=== PATIENT | female | born 1950 | race Hispanic/Latino ===

== ENCOUNTER 2017-10-29 21:22 | Inpatient (IN) | payer MEDICARE, MEDICAID ==
[2017-10-29 22:18] LABS: Mean Corpuscular HGB Conc 30 % (30-34); Mean Corpuscular Hemoglobin 28 pg (28-32); Mean Corpuscular Volume 92 fl (79-97); Red Blood Count 5.86 M/mm3 (3.65-5.03); Red Cell Distribution Width 16.4 % (13.2-15.2)
[2017-10-29 22:32] LABS: Hemoglobin 16.4 gm/dl (10.1-14.3); Platelet Count 656 K/mm3 (140-440)
[2017-10-29 22:35] LABS: Alanine Aminotransferase TNR units/L (7-56); Albumin TNR g/dL (3.9-5); BUN/Creatinine Ratio TNR; Blood Urea Nitrogen TNR mg/dL (7-17); Calcium TNR mg/dL (8.4-10.2)
[2017-10-29 22:36] LABS: Hemolysis Index TNR
[2017-10-29] MEDS ORDERED: NACL 0.9% 1000 ML 1,000 ML IV ONE (22:36)
[2017-10-29] MEDS ORDERED: BENADRYL IV ONE (23:34)
[2017-10-29 23:37] LABS: Band Neutrophils # (Manual) 1.4 K/mm3; Basophils % (Manual) 0 % (0.0-1.8); Eosinophils % (Manual) 0 % (0.0-4.3); Monocytes % (Manual) 3.5 % (0.0-7.3); Total Cells Counted 200
[2017-10-29 23:39] LABS: Platelet Estimate Appears Increased
[2017-10-29 23:40] LABS: Ovalocytes Few; Target Cells Few
[2017-10-30 00:16] LABS: Bacteria,Urine 4+ /HPF (Negative); Bilirubin,Urine NEG (Negative); Blood,Urine NEG (Negative); Color,Urine Amber (Yellow); Hyaline Casts,Urine 8 /LPF; Mucus,Urine 3+ /HPF; Nitrite,Urine NEG (Negative)
[2017-10-30 00:18] LABS: WBC,Urine > 182.0 /HPF (0.0-6.0)
[2017-10-30] MEDS ORDERED: NACL 0.9% 1000 ML 1,000 ML IV ONE (00:25)
[2017-10-30] MEDS ORDERED: ROCEPHIN IV ONE (00:30)
[2017-10-30] MEDS ORDERED: NACL 0.9% IV ONE (00:30)
--- NOTE | 2017-10-30 01:30 | Emergency Department Report ---
ED Recheck HPI - General Chief Complaint: Recheck/Abnormal Lab/Rx Stated Complaint: ABNORMAL LABS Time Seen by Provider: 10/29/17 21:57 Source: EMS Mode of arrival: Stretcher Limitations: Altered Mental Status - History of Present Illness Initial Comments: Patient has mostly a psychiatric history with GERD who now has WBC at NH of 31K and a reported sodium of 170. She has had no change in behavior per triage interview. Patient has not appeared to be in acute distress. She does not know why she is here but is pleasant. Complaint: abnormal lab -: Gradual Initial Visit For: other (abnormal lab recheck.) Returns Today for: other (Recheck labs.) Symptoms Since Prior Visit: no new symptoms Context: called for abnorm lab res Associated Symptoms: none - Related Data Allergies Allergy/AdvReac Type Severity Reaction Status Date / Time No Known Allergies Allergy Unverified 10/29/17 21:26 ED Review of Systems ROS: Stated complaint: ABNORMAL LABS Other details as noted in HPI Constitutional: denies: chills, fever Eyes: denies: eye pain, eye discharge, vision change ENT: denies: ear pain, throat pain Respiratory: denies: cough, shortness of breath, wheezing Cardiovascular: denies: chest pain, palpitations Endocrine: no symptoms reported Gastrointestinal: denies: abdominal pain, nausea, diarrhea Genitourinary: denies: urgency, dysuria, discharge Musculoskeletal: denies: back pain, joint swelling, arthralgia Skin: denies: rash, lesions Neurological: denies: headache, weakness, paresthesias Psychiatric: denies: anxiety, depression Hematological/Lymphatic: denies: easy bleeding, easy bruising ED Past Medical Hx - Past Medical History Previous Medical History?: Yes Hx Psychiatric Treatment: Yes (Bi Polar, Depression) Additional medical history: Glycoma - Social History Smoking Status: Never Smoker Substance Use Type: Prescribed ED Physical Exam - General Limitations: Altered Mental Status, Other (Patient cognitively appears confused but is no distress.) General appearance: alert, in no apparent distress - Head Head exam: Present: atraumatic, normocephalic - Eye Eye exam: Present: normal appearance - ENT ENT exam: Present: mucous membranes dry - Neck Neck exam: Present: normal inspection - Respiratory Respiratory exam: Present: normal lung sounds bilaterally. Absent: respiratory distress - Cardiovascular Cardiovascular Exam: Present: regular rate, normal rhythm. Absent: systolic murmur, diastolic murmur, rubs, gallop - GI/Abdominal GI/Abdominal exam: Present: soft, normal bowel sounds - Extremities Exam Extremities exam: Present: normal inspection - Back Exam Back exam: Present: normal inspection - Neurological Exam Neurological exam: Present: alert, altered (but per triage no acute changes from baseline.), CN II-XII intact, motor sensory deficit, reflexes normal - Psychiatric Psychiatric exam: Present: normal affect, normal mood - Skin Skin exam: Present: warm, dry, intact, normal color. Absent: rash ED Course Vital Signs 10/29/17 10/29/17 10/30/17 21:26 23:35 00:37 Temperature 98.0 F 97.7 F Pulse Rate 99 H 108 H 108 H Respiratory 20 20 18 Rate Blood Pressure 94/66 Blood Pressure 146/67 146/65 [Left] O2 Sat by Pulse 97 Oximetry ED Recheck MDM - Core Measures AMI Core Measures Followed: No Measure Exclusions: not indicated - Differential Diagnosis Recheck of Abnormal Lab - Medical Decision Making Patient with abnormal labs here and lab has been unable to quantify CMP values. Her WBC was 47K and her lactic acid was elevated. She was started on the sepsis protocol. She is making urine as they got 300 ml out on initial cath of dark yellow urine. Critical care attestation.: If time is entered above; I have spent that time in minutes in the direct care of this critically ill patient, excluding procedure time. ED Disposition Clinical Impression: Lymphocytosis Sepsis Qualifiers: Sepsis type: sepsis due to unspecified organism Qualified Code(s): A41.9 - Sepsis, unspecified organism UTI (urinary tract infection) Qualifiers: Urinary tract infection type: acute cystitis Hematuria presence: without hematuria Qualified Code(s): N30.00 - Acute cystitis without hematuria Disposition: OP ADMIT IP TO THIS HOSP Is pt being admited?: Yes Does the pt Need Aspirin: No Condition: Stable Time of Disposition: 01:36
[2017-10-30 02:06] LABS: Calcium 9.5 mg/dL (8.4-10.2)
[2017-10-30] MEDS ORDERED: ZOFRAN IV PRN (02:09)
[2017-10-30] MEDS ORDERED: MILK OF MAGNESIA PO PRN (02:09)
[2017-10-30] MEDS ORDERED: TYLENOL PO PRN (02:09)
[2017-10-30] MEDS ORDERED: DULCOLAX PR PRN (02:09)
--- NOTE | 2017-10-30 02:34 | History and Physical Report ---
History of Present Illness Date of examination: 10/30/17 History of present illness: 67-year-old woman with a history of dementia, depression was sent to the emergency room for evaluation of abnormal labs. Her white count was 31 and sodium of 170. Patient is unable to give a history, unable to obtain review of systems PAST MEDICAL HISTORY:dementia, depression PAST SURGICAL HISTORY: Unknown FAMILY HISTORY: Unknown SOCIAL HISTORY: Unknown, long-term resident Medications and Allergies Allergies Allergy/AdvReac Type Severity Reaction Status Date / Time No Known Allergies Allergy Unverified 10/29/17 21:26 Home Medications Medication Instructions Recorded Confirmed Last Taken Type Escitalopram [Lexapro] 10 mg PO DAILY 10/30/17 10/30/17 Unknown History Ferrous Sulfate [Ferosul Oral Liq 300 mg PO QAM 10/30/17 10/30/17 Unknown History 300 Mg/6.82 Ml] Folic Acid [Folvite] 1 mg PO QDAY 10/30/17 10/30/17 Unknown History Potassium Chloride [Klor-Con 10 meq PO QDAY 10/30/17 10/30/17 Unknown History Sprinkle] Sennosides [Senna] 8.6 mg PO QHS 10/30/17 10/30/17 Unknown History Valproic Acid (As Sodium Salt) 250 mg PO TID 10/30/17 10/30/17 Unknown History [Depakene] Zantac 150 MG TAB 75 mg HS 10/30/17 10/30/17 Unknown History Acetaminophen [Acetaminophen TAB] 325 mg PO Q4H PRN #30 tablet 11/02/17 Unknown Rx Bisacodyl [Dulcolax suppos] 10 mg NM QDAY PRN #4 supp.rect 11/02/17 Unknown Rx Donepezil [Aricept] 10 mg PO QHS #30 11/02/17 10/30/17 Unknown Rx Levofloxacin [Levaquin TAB] 750 mg PO Q24HR #6 day 11/02/17 Unknown Rx Magnesium Hydroxide [Milk of 30 ml PO Q4H PRN #30 oral.liqd 11/02/17 Unknown Rx Magnesia] Active Meds: Active Medications Acetaminophen (Tylenol) 650 mg PO Q4H PRN PRN Reason: Pain MILD(1-3)/Fever >100.5/JAIME Bisacodyl (Dulcolax) 10 mg NM QDAY PRN PRN Reason: Constipation unrelieved by MOM Enoxaparin Sodium (Lovenox) 30 mg SUB-Q QDAY LENY Ceftriaxone Sodium (Rocephin/Ns 2 Gm/100 Ml) 2 gm in 100 mls @ 200 mls/hr IV ONCE.ED ONE PRN Reason: Protocol Stop: 10/31/17 00:17 Piperacillin Sod/Tazobactam Sod (Zosyn/Ns 3.375gm/50ml) 3.375 gm in 50 mls @ 100 mls/hr IV Q8H LENY PRN Reason: Protocol Dextrose (D5w) 1,000 mls @ 75 mls/hr IV DIRECT LENY Vancomycin HCl (Vancomycin/Ns 1 Gm/250 Ml) 1 gm in 250 mls @ 167.007 mls/hr IV ONCE.ED ONE PRN Reason: Protocol Stop: 10/30/17 05:29 Magnesium Hydroxide (Milk Of Magnesia) 30 ml PO Q4H PRN PRN Reason: Constipation Ondansetron HCl (Zofran) 4 mg IV Q8H PRN PRN Reason: N/V unrelieved by Reglan Exam - Physical Exam Narrative exam: Gen. appearance: Patient lying in bed in no acute distress HEENT: Normocephalic/atraumatic, pupils equal round reactive to light, extra occular movement intact, no scleral icterus, no JVD or thyromegaly or nodule, neck is supple, mucous membrane moist, no erythema or exudate Heart: S1-S2, regular rate and rhythm Lungs: Clear to auscultation bilateral breathing comfortable Abdomen: Positive bowel sounds, nontender, nondistended, no organomegaly Extremities: No edema, cyanosis, clubbing Neuro:: Oriented 3 , cranial nerves II-12 intact, speech, motor intact Skin: No rash, nodules, warm dry - Constitutional Vitals: Temp Pulse Resp BP Pulse Ox 97.7 F 108 H 18 146/65 97 10/29/17 23:35 10/30/17 00:37 10/30/17 00:37 10/30/17 00:37 10/29/17 21:26 Results - Labs CBC & Chem 7: 11/02/17 07:33 11/02/17 07:33 Labs: Abnormal lab results 10/29/17 10/29/17 10/29/17 Range/Units 21:37 21:37 23:46 WBC 46.7 H* (4.5-11.0) K/mm3 RBC 5.86 H (3.65-5.03) M/mm3 Hgb 16.4 H (10.1-14.3) gm/dl Hct 54.0 H (30.3-42.9) % RDW 16.4 H (13.2-15.2) % Plt Count 656 H (140-440) K/mm3 Lymphocytes % (Manual) 52.5 H (13.4-35.0) % Seg Neutrophils # Man 19.1 H (1.8-7.7) K/mm3 Lymphocytes # (Manual) 24.5 H (1.2-5.4) K/mm3 Monocytes # (Manual) 1.6 H (0.0-0.8) K/mm3 Sodium (137-145) mmol/L Chloride (98-107) mmol/L BUN (7-17) mg/dL Creatinine (0.7-1.2) mg/dL Glucose (65-100) mg/dL Lactic Acid 2.80 H* (0.7-2.0) mmol/L Urine WBC (Auto) > 182.0 H (0.0-6.0) /HPF 10/30/17 Range/Units 01:53 WBC (4.5-11.0) K/mm3 RBC (3.65-5.03) M/mm3 Hgb (10.1-14.3) gm/dl Hct (30.3-42.9) % RDW (13.2-15.2) % Plt Count (140-440) K/mm3 Lymphocytes % (Manual) (13.4-35.0) % Seg Neutrophils # Man (1.8-7.7) K/mm3 Lymphocytes # (Manual) (1.2-5.4) K/mm3 Monocytes # (Manual) (0.0-0.8) K/mm3 Sodium 177 H* (137-145) mmol/L Chloride 133.3 H (98-107) mmol/L BUN 74 H (7-17) mg/dL Creatinine 2.6 H (0.7-1.2) mg/dL Glucose 146 H (65-100) mg/dL Lactic Acid (0.7-2.0) mmol/L Urine WBC (Auto) (0.0-6.0) /HPF - Imaging and Cardiology EKG: image reviewed Assessment and Plan Assessment sepsis severe hypernatremia Acute renal failure dehydrstion Dementia Depression Plan Admit to medicine Start IV fluids, monitor sodium level Start vancomycin, Zosyn, follow cultures, consult infectious disease I'll clear this white count is secondary to infection versus malignancy She has a thick slight yellowness sputum, check CT chest DVT prophylaxis
[2017-10-30] MEDS ORDERED: ZOSYN/NS 3.375GM/50ML 3.375 GM/50 ML BAG IV SCH (03:00)
[2017-10-30] MEDS ORDERED: NACL 0.9% 1000 ML 1,000 ML IV SCH (03:00)
--- NOTE | 2017-10-30 03:03 | Cat Scan Report ---
FINAL REPORT EXAM: CT CHEST WO CON HISTORY: wbc 46 TECHNIQUE: Routine axial imaging was obtained of the thorax without IV contrast with sagittal and coronal reconstructions. FINDINGS: There is motion artifact compromising the images. There is a spiculated 14 millimeter nodule which is noncalcified in the posterior segment of the right upper lobe abutting the major fissure. Malignancy cannot be excluded. The lungs otherwise do not show infiltrates or effusions. There is dependent atelectasis in both lower lobes. The lungs are not congested. The heart size is normal. Pericardial fluid is not seen. The thoracic aorta is ectatic. There is no evidence of adenopathy. In the upper abdomen the adrenal glands appear normal. The skeletal structures reveal multilevel disc degeneration in the thoracic spine. IMPRESSION: Limited exam because of motion artifact. No evidence of pneumonia or congestion. Spiculated noncalcified nodule in the posterior segment of the right upper lobe abutting the major fissure measuring 14 millimeters in diameter. Malignancy cannot be excluded.
[2017-10-30] MEDS: ZOSYN/NS 2.25 GM/50ML 2.25 GM/50 ML BAG IV SCH ×4 (03:19→18:02)
[2017-10-30 03:45] LABS: Calcium 7.8 mg/dL (8.4-10.2)
[2017-10-30] MEDS ORDERED: VANCOMYCIN/NS 1 GM/250 ML 1 GM/250 ML BAG IV ONE (04:00)
[2017-10-30] MEDS: D5W 1,000 ML IV SCH (05:58)
[2017-10-30 06:04] LABS: Calcium 7.7 mg/dL (8.4-10.2)
--- NOTE | 2017-10-30 08:49 | Ultrasound Report ---
Renal ultrasound. History: Acute renal failure. Findings: The right kidney is normal in size and configuration with the longitudinal axis measuring 10.3 cm. There is no evidence of mass or hydronephrosis. An attempt was made to complete the examination, but the patient insisted that the examination be terminated before the left kidney and bladder could be examined.
[2017-10-30] MEDS ORDERED: LOVENOX SUB-Q SCH (10:00)
[2017-10-30 10:42] LABS: Calcium 8.2 mg/dL (8.4-10.2)
--- NOTE | 2017-10-30 10:54 | Progress Note ---
Assessment and Plan Assessment and plan: Patient is 67-year-old woman from a shelter with a history of mental disorder who presents with altered mental status and abnormal labs (no prior hospitalization in EMR). She was found to have a sodium of 177, white blood cell count 46.7 CT chest without contrast reported as no pneumonia, spiculated noncalcified nodule in the posterior segment of the right upper lung abutting the major fissure with a 14 mm diameter -Acute metabolic encephalopathy: Treat underlying cause -Severe hypernatremia: Consulted nephrology and d/w Dr. Toney should be on D5W -Severe leukocytosis, severely dehydrated and FTT, ?Cancer: consult heme/onc -ARF, vasomotor nephropathy: IVF -Mild malnutrition: poor intake, ?peg -Lung nodule. ?lung Cancer: consult pulmonology -DVT/GI prophylaxis reviewed History Interval history: Patient was seen and examined. Follow-up on current diagnosis/altered mental status. Overnight uneventful. Imaging, nursing note, chart, labs and old chart reviewed. Patient is confused. Hospitalist Physical - Physical exam Narrative exam: GEN: Thin and frail NAD, AWAKE, ALERT, ORIENTATED 1 HEENT: NCAT, EOMI, PERRL, OP dry and pasty lips NECK: supple, no adenopathy, no thyromegaly, no JVD CVS/HEART: RRR, NORMAL S1S2, NO JVD, pulses present bilaterally CHEST/LUNGS: CTA B, Symmetrical chest expansion, good air entry bilaterally GI/Abdomen: soft, NTND, good bowel sounds, no guarding or rebound /Bladder: no suprapubic tenderness, no CVA or paraspinal tenderness EXT/Skin: mucous membranes dry MSK: FROM x 4 Neuro: CN 2-12 grossly intact, no new focal deficits Psych: calm - Constitutional Vitals: Temp Pulse Resp BP Pulse Ox 98.9 F 80 20 121/98 91 10/30/17 08:18 10/30/17 08:18 10/30/17 08:18 10/30/17 08:18 10/30/17 08:18 Results - Labs CBC & Chem 7: 10/29/17 21:37 10/30/17 10:00 Labs: Laboratory Last Values WBC 46.7 K/mm3 (4.5-11.0) H* 10/29/17 21:37 RBC 5.86 M/mm3 (3.65-5.03) H 10/29/17 21:37 Hgb 16.4 gm/dl (10.1-14.3) H 10/29/17 21:37 Hct 54.0 % (30.3-42.9) H 10/29/17 21:37 MCV 92 fl (79-97) 10/29/17 21:37 MCH 28 pg (28-32) 10/29/17 21:37 MCHC 30 % (30-34) 10/29/17 21:37 RDW 16.4 % (13.2-15.2) H 10/29/17 21:37 Plt Count 656 K/mm3 (140-440) H 10/29/17 21:37 Lymph % (Auto) [employer] Installer 10/29/17 21:37 Carson % (Auto) [employer] Installer 10/29/17 21:37 Eos % (Auto) [employer] Installer 10/29/17 21:37 Baso % (Auto) [employer] Installer 10/29/17 21:37 Lymph # [employer] Installer 10/29/17 21:37 Carson # [employer] Maker [employer] Installer 10/29/17 21:37 Eos # [employer] Maker [employer] Installer 10/29/17 21:37 Baso # [employer] Maker [employer] Installer 10/29/17 21:37 Add Manual Diff Complete 10/29/17 21:37 Total Counted 200 10/29/17 21:37 Seg Neutrophils % [employer] Installer 10/29/17 21:37 Seg Neuts % (Manual) 41.0 % (40.0-70.0) 10/29/17 21:37 Band Neutrophils % 3.0 % 10/29/17 21:37 Lymphocytes % (Manual) 52.5 % (13.4-35.0) H 10/29/17 21:37 Reactive Lymphs % (Man) 0 % 10/29/17 21:37 Monocytes % (Manual) 3.5 % (0.0-7.3) 10/29/17 21:37 Eosinophils % (Manual) 0 % (0.0-4.3) 10/29/17 21:37 Basophils % (Manual) 0 % (0.0-1.8) 10/29/17 21:37 Metamyelocytes % 0 % 10/29/17 21:37 Myelocytes % 0 % 10/29/17 21:37 Promyelocytes % 0 % 10/29/17 21:37 Blast Cells % 0 % 10/29/17 21:37 Nucleated RBC % Not Reportable 10/29/17 21:37 Seg Neutrophils # [employer] Installer 10/29/17 21:37 Seg Neutrophils # Man 19.1 K/mm3 (1.8-7.7) H 10/29/17 21:37 Band Neutrophils # 1.4 K/mm3 10/29/17 21:37 Lymphocytes # (Manual) 24.5 K/mm3 (1.2-5.4) H 10/29/17 21:37 Abs React Lymphs (Man) 0.0 K/mm3 10/29/17 21:37 Monocytes # (Manual) 1.6 K/mm3 (0.0-0.8) H 10/29/17 21:37 Eosinophils # (Manual) 0.0 K/mm3 (0.0-0.4) 10/29/17 21:37 Basophils # (Manual) 0.0 K/mm3 (0.0-0.1) 10/29/17 21:37 Metamyelocytes # 0.0 K/mm3 10/29/17 21:37 Myelocytes # 0.0 K/mm3 10/29/17 21:37 Promyelocytes # 0.0 K/mm3 10/29/17 21:37 Blast Cells # 0.0 K/mm3 10/29/17 21:37 WBC Morphology Not Reportable 10/29/17 21:37 Hypersegmented Neuts Not Reportable 10/29/17 21:37 Hyposegmented Neuts Not Reportable 10/29/17 21:37 Hypogranular Neuts Not Reportable 10/29/17 21:37 Smudge Cells Not Reportable 10/29/17 21:37 Toxic Granulation Not Reportable 10/29/17 21:37 Toxic Vacuolation Not Reportable 10/29/17 21:37 Dohle Bodies Not Reportable 10/29/17 21:37 Pelger-Huet Anomaly Not Reportable 10/29/17 21:37 Boo Rods Not Reportable 10/29/17 21:37 Platelet Estimate Appears increased 10/29/17 21:37 Clumped Platelets Not Reportable 10/29/17 21:37 Plt Clumps, EDTA Not Reportable 10/29/17 21:37 Large Platelets Not Reportable 10/29/17 21:37 Giant Platelets Not Reportable 10/29/17 21:37 Platelet Satelliting Not Reportable 10/29/17 21:37 Plt Morphology Comment Not Reportable 10/29/17 21:37 RBC Morphology Not Reportable 10/29/17 21:37 Dimorphic RBCs Not Reportable 10/29/17 21:37 Polychromasia Not Reportable 10/29/17 21:37 Hypochromasia Not Reportable 10/29/17 21:37 Poikilocytosis Not Reportable 10/29/17 21:37 Anisocytosis Not Reportable 10/29/17 21:37 Microcytosis Not Reportable 10/29/17 21:37 Macrocytosis Not Reportable 10/29/17 21:37 Spherocytes Not Reportable 10/29/17 21:37 Pappenheimer Bodies Not Reportable 10/29/17 21:37 Sickle Cells Not Reportable 10/29/17 21:37 Target Cells Few 10/29/17 21:37 Tear Drop Cells Not Reportable 10/29/17 21:37 Ovalocytes Few 10/29/17 21:37 Helmet Cells Not Reportable 10/29/17 21:37 [place] Bodies Not Reportable 10/29/17 21:37 [place] Rings Not Reportable 10/29/17 21:37 Girish Cells Not Reportable 10/29/17 21:37 Bite Cells Not Reportable 10/29/17 21:37 Crenated Cell Not Reportable 10/29/17 21:37 Elliptocytes Not Reportable 10/29/17 21:37 Acanthocytes (Spur) Not Reportable 10/29/17 21:37 Rouleaux Not Reportable 10/29/17 21:37 Hemoglobin C Crystals Not Reportable 10/29/17 21:37 Schistocytes Not Reportable 10/29/17 21:37 Malaria parasites Not Reportable 10/29/17 21:37 Josue Bodies Not Reportable 10/29/17 21:37 Hem Pathologist Commnt No 10/29/17 21:37 Sodium 175 mmol/L (137-145) H* 10/30/17 10:00 Potassium 4.5 mmol/L (3.6-5.0) D 10/30/17 10:00 Chloride 137.4 mmol/L (98-107) H 10/30/17 10:00 Carbon Dioxide 22 mmol/L (22-30) 10/30/17 10:00 Anion Gap 20 mmol/L 10/30/17 10:00 BUN 57 mg/dL (7-17) H 10/30/17 10:00 Creatinine 1.4 mg/dL (0.7-1.2) H 10/30/17 10:00 Estimated GFR 37 ml/min 10/30/17 10:00 BUN/Creatinine Ratio 41 % 10/30/17 10:00 Glucose 164 mg/dL (65-100) H 10/30/17 10:00 Lactic Acid 2.80 mmol/L (0.7-2.0) H* 10/29/17 21:37 Calcium 8.2 mg/dL (8.4-10.2) L 10/30/17 10:00 Total Bilirubin 0.30 mg/dL (0.1-1.2) 10/30/17 01:53 AST 33 units/L (5-40) 10/30/17 01:53 ALT 30 units/L (7-56) 10/30/17 01:53 Alkaline Phosphatase 116 units/L (35-129) 10/30/17 01:53 Total Protein 7.6 g/dL (6.3-8.2) 10/30/17 01:53 Albumin 4.0 g/dL (3.9-5) 10/30/17 01:53 Albumin/Globulin Ratio 1.1 % 10/30/17 01:53 Urine Color Elle (Yellow) 10/29/17 23:46 Urine Turbidity Cloudy (Clear) 10/29/17 23:46 Urine pH 5.0 (5.0-7.0) 10/29/17 23:46 Ur Specific Perrin 1.021 (1.003-1.030) 10/29/17 23:46 Urine Protein 30 mg/dl mg/dL (Negative) 10/29/17 23:46 Urine Glucose (UA) Neg mg/dL (Negative) 10/29/17 23:46 Urine Ketones Neg mg/dL (Negative) 10/29/17 23:46 Urine Blood Neg (Negative) 10/29/17 23:46 Urine Nitrite Neg (Negative) 10/29/17 23:46 Urine Bilirubin Neg (Negative) 10/29/17 23:46 Urine Urobilinogen 2.0 mg/dL (<2.0) 10/29/17 23:46 Ur Leukocyte Esterase Lg (Negative) 10/29/17 23:46 Urine WBC (Auto) > 182.0 /HPF (0.0-6.0) H 10/29/17 23:46 Urine RBC (Auto) 9.0 /HPF (0.0-6.0) 10/29/17 23:46 Urine Bacteria (Auto) 4+ /HPF (Negative) 10/29/17 23:46 Urine WBC Clumps 3+ /HPF 10/29/17 23:46 Hyaline Casts 8 /LPF 10/29/17 23:46 Urine Mucus 3+ /HPF 10/29/17 23:46
--- NOTE | 2017-10-30 11:57 | Consultation ---
History of Present Illness - Reason for Consult Consult date: 10/30/17 leukocytosis Requesting physician: DONAVON EPPS - History of Present Illness 67 years old female with history of dementia and depression, admitted on 10/29/17 sent from care home for evaluation of abnormal labs. Her white count was found at 31 and sodium at 170. Patient is unable to give a history, unable to obtain review of systems. In the emergency room, initial temperature was 98, heart rate 99, respiration 20 , O2 sat 97, blood pressure 94/66. Initial white count 46. Hg 10.4. Plat 656. Sodium was 175. Urinalysis showed large leukocyte esterase and 182 white blood cells. Renal ultrasound was negative. The chest showed right upper lobe nodule at 14 mm. Microbiology: none Current Antimicrobials: Zosyn Ceftriaxone Previous Antimicrobials: Medications and Allergies Allergies Allergy/AdvReac Type Severity Reaction Status Date / Time No Known Allergies Allergy Unverified 10/29/17 21:26 Home Medications Medication Instructions Recorded Confirmed Last Taken Type Acetaminophen [Acetaminophen ER] 650 mg PO BID 10/30/17 10/30/17 Unknown History Cranberry Fruit [Cranberry] 405 mg PO QDAY 10/30/17 10/30/17 Unknown History Donepezil [Aricept] 10 mg PO QHS 10/30/17 10/30/17 Unknown History Escitalopram [Lexapro] 10 mg PO DAILY 10/30/17 10/30/17 Unknown History Ferrous Sulfate [Ferosul Oral Liq 300 mg PO QAM 10/30/17 10/30/17 Unknown History 300 Mg/6.82 Ml] Folic Acid [Folvite] 1 mg PO QDAY 10/30/17 10/30/17 Unknown History Potassium Chloride [Klor-Con 10 meq PO QDAY 10/30/17 10/30/17 Unknown History Sprinkle] Sennosides [Senna] 8.6 mg PO QHS 10/30/17 10/30/17 Unknown History Valproic Acid (As Sodium Salt) 250 mg PO TID 10/30/17 10/30/17 Unknown History [Depakene] Zantac 150 MG TAB 75 mg HS 10/30/17 10/30/17 Unknown History Active Meds: Active Medications Acetaminophen (Tylenol) 650 mg PO Q4H PRN PRN Reason: Pain MILD(1-3)/Fever >100.5/JAIME Bisacodyl (Dulcolax) 10 mg [place] QDAY PRN PRN Reason: Constipation unrelieved by MOM Enoxaparin Sodium (Lovenox) 30 mg SUB-Q QDAY [facility] Ceftriaxone Sodium (Rocephin/Ns 2 Gm/100 Ml) 2 gm in 100 mls @ 200 mls/hr IV ONCE.ED ONE PRN Reason: Protocol Stop: 10/31/17 00:17 Dextrose (D5w) 1,000 mls @ 75 mls/hr IV DIRECT [facility] Last Admin: 10/30/17 05:58 Dose: 75 mls/hr Piperacillin Sod/Tazobactam Sod (Zosyn/Ns 2.25 Gm/50ml) 2.25 gm in 50 mls @ 100 mls/hr IV Q6H [facility] Last Admin: 10/30/17 03:19 Dose: 100 mls/hr Magnesium Hydroxide (Milk Of Magnesia) 30 ml PO Q4H PRN PRN Reason: Constipation Ondansetron HCl (Zofran) 4 mg IV Q8H PRN PRN Reason: N/V unrelieved by Reglan Physical Examination - Physical Exam Narrative exam: General appearance: Alert in NAD, conversant Eyes: anicteric sclerae, moist conjunctivae; no lid-lag; PERRLA HENT: Atraumatic; oropharynx clear with moist mucous membranes and no mucosal ulcerations/no oral thrush; normal hard and soft palate. Normal external ears. Neck: Trachea midline; supple, no thyromegaly or lymphadenopathy Lungs: CTA CV: RRR Abdomen: Soft, non-tender Extremities: No peripheral edema or extremity lymphadenopathy Skin: Normal temperature, turgor and texture; no rash, ulcers or subcutaneous nodules Psych: not appropriate repeating same answers. Neuro: alert and oriented x 3. Moving all extermities Lines: No CVL / PICC - Constitutional Vitals: Vital Signs Temp Pulse Resp BP Pulse Ox 98.9 F 80 20 121/98 91 10/30/17 08:18 10/30/17 08:18 10/30/17 08:18 10/30/17 08:18 10/30/17 08:18 Temperature -Last 24 Hours Temperature 98.9 F Temperature 97.3 F Temperature 97.7 F Temperature 98.0 F Results - Labs CBC & Chem 7: 10/29/17 21:37 10/30/17 10:00 Labs: Abnormal lab results 10/29/17 10/29/17 10/29/17 Range/Units 21:37 21:37 23:46 WBC 46.7 H* (4.5-11.0) K/mm3 RBC 5.86 H (3.65-5.03) M/mm3 Hgb 16.4 H (10.1-14.3) gm/dl Hct 54.0 H (30.3-42.9) % RDW 16.4 H (13.2-15.2) % Plt Count 656 H (140-440) K/mm3 Lymphocytes % (Manual) 52.5 H (13.4-35.0) % Seg Neutrophils # Man 19.1 H (1.8-7.7) K/mm3 Lymphocytes # (Manual) 24.5 H (1.2-5.4) K/mm3 Monocytes # (Manual) 1.6 H (0.0-0.8) K/mm3 Sodium (137-145) mmol/L Potassium (3.6-5.0) mmol/L Chloride (98-107) mmol/L BUN (7-17) mg/dL Creatinine (0.7-1.2) mg/dL Glucose (65-100) mg/dL Lactic Acid 2.80 H* (0.7-2.0) mmol/L Calcium (8.4-10.2) mg/dL Urine WBC (Auto) > 182.0 H (0.0-6.0) /HPF 10/30/17 10/30/17 10/30/17 Range/Units 01:53 03:05 05:20 WBC (4.5-11.0) K/mm3 RBC (3.65-5.03) M/mm3 Hgb (10.1-14.3) gm/dl Hct (30.3-42.9) % RDW (13.2-15.2) % Plt Count (140-440) K/mm3 Lymphocytes % (Manual) (13.4-35.0) % Seg Neutrophils # Man (1.8-7.7) K/mm3 Lymphocytes # (Manual) (1.2-5.4) K/mm3 Monocytes # (Manual) (0.0-0.8) K/mm3 Sodium 177 H* 175 H* 180 H* (137-145) mmol/L Potassium 3.4 L (3.6-5.0) mmol/L Chloride 133.3 H 135.5 H 140 H (98-107) mmol/L BUN 74 H 66 H 65 H (7-17) mg/dL Creatinine 2.6 H 2.0 H 1.8 H (0.7-1.2) mg/dL Glucose 146 H 122 H 130 H (65-100) mg/dL Lactic Acid (0.7-2.0) mmol/L Calcium 7.8 L D 7.7 L (8.4-10.2) mg/dL Urine WBC (Auto) (0.0-6.0) /HPF 10/30/17 Range/Units 10:00 WBC (4.5-11.0) K/mm3 RBC (3.65-5.03) M/mm3 Hgb (10.1-14.3) gm/dl Hct (30.3-42.9) % RDW (13.2-15.2) % Plt Count (140-440) K/mm3 Lymphocytes % (Manual) (13.4-35.0) % Seg Neutrophils # Man (1.8-7.7) K/mm3 Lymphocytes # (Manual) (1.2-5.4) K/mm3 Monocytes # (Manual) (0.0-0.8) K/mm3 Sodium 175 H* (137-145) mmol/L Potassium (3.6-5.0) mmol/L Chloride 137.4 H (98-107) mmol/L BUN 57 H (7-17) mg/dL Creatinine 1.4 H (0.7-1.2) mg/dL Glucose 164 H (65-100) mg/dL Lactic Acid (0.7-2.0) mmol/L Calcium 8.2 L (8.4-10.2) mg/dL Urine WBC (Auto) (0.0-6.0) /HPF Assessment and Plan Assessment: 1) Sepsis: Present on admission, manifested by tachycardia, hypotension, leukocytosis with leukomoid reaction, increased lactate. Etiology ? unclear ? UTI ?occult infection ? malignancy. 2) UTI 3) RUL lung nodule ? malignancy 4) Hypernatremia 5) AMS - from high sodium / infection ? Plan: -obtain blood cultures, urine culture -obtain procalcitonin, C-reactive protein (CRP) -consult pulmonary -obtain abdominal CT -continue zosyn for now-will stop soon if negative work-up Thank you Dr Epps for your consultation, will follow up with you. Nelly Sauer MD Infectious Diseases Specialist [facility] ([facility]) M [phone] O [phone]
[2017-10-30 14:45] LABS: Calcium 8.2 mg/dL (8.4-10.2)
--- NOTE | 2017-10-30 15:52 | Consultation ---
History of Present Illness Consult date: 10/30/17 Requesting physician: DBE VILLARREAL Reason for consult: abnormal CXR/CT History of present illness: 67 y/o female, admitted from senior living secondary to abnormal labs. Unsure of why labs were drawn. CT scan of chest obtained by medicine secondary to thick sputum. Found to have a right upper lobe nodule 14 millimeters is documented but it does not tell what plane this is measured in. There is a lot of motion artifact as well so hard to tell if this is truly spiculated. Pulmonary consulted because of nodule. Patient unfortunately cannot provide any history. Past History Past Medical History: other (unable to obtain) Social history: other (unable to obtain) Family history: other (unable to obtain) Medications and Allergies Allergies Allergy/AdvReac Type Severity Reaction Status Date / Time No Known Allergies Allergy Unverified 10/29/17 21:26 Home Medications Medication Instructions Recorded Confirmed Last Taken Type Acetaminophen [Acetaminophen ER] 650 mg PO BID 10/30/17 10/30/17 Unknown History Cranberry Fruit [Cranberry] 405 mg PO QDAY 10/30/17 10/30/17 Unknown History Donepezil [Aricept] 10 mg PO QHS 10/30/17 10/30/17 Unknown History Escitalopram [Lexapro] 10 mg PO DAILY 10/30/17 10/30/17 Unknown History Ferrous Sulfate [Ferosul Oral Liq 300 mg PO QAM 10/30/17 10/30/17 Unknown History 300 Mg/6.82 Ml] Folic Acid [Folvite] 1 mg PO QDAY 10/30/17 10/30/17 Unknown History Potassium Chloride [Klor-Con 10 meq PO QDAY 10/30/17 10/30/17 Unknown History Sprinkle] Sennosides [Senna] 8.6 mg PO QHS 10/30/17 10/30/17 Unknown History Valproic Acid (As Sodium Salt) 250 mg PO TID 10/30/17 10/30/17 Unknown History [Depakene] Zantac 150 MG TAB 75 mg HS 10/30/17 10/30/17 Unknown History Active Meds: Active Medications Acetaminophen (Tylenol) 650 mg PO Q4H PRN PRN Reason: Pain MILD(1-3)/Fever >100.5/JAIME Bisacodyl (Dulcolax) 10 mg [place] QDAY PRN PRN Reason: Constipation unrelieved by MOM Enoxaparin Sodium (Lovenox) 30 mg SUB-Q QDAY [facility] Last Admin: 10/30/17 12:32 Dose: 30 mg Dextrose (D5w) 1,000 mls @ 75 mls/hr IV DIRECT [facility] Last Admin: 10/30/17 05:58 Dose: 75 mls/hr Piperacillin Sod/Tazobactam Sod (Zosyn/Ns 2.25 Gm/50ml) 2.25 gm in 50 mls @ 100 mls/hr IV Q6H [facility] Last Admin: 10/30/17 12:48 Dose: 100 mls/hr Magnesium Hydroxide (Milk Of Magnesia) 30 ml PO Q4H PRN PRN Reason: Constipation Ondansetron HCl (Zofran) 4 mg IV Q8H PRN PRN Reason: N/V unrelieved by Reglan Review of Systems ROS unobtainable: due to mental status Physical Examination Vital signs: Vital Signs Temp Pulse Resp BP Pulse Ox 98.0 F 99 H 20 94/66 97 10/29/17 21:26 10/29/17 21:26 10/29/17 21:26 10/29/17 21:26 10/29/17 21:26 General appearance: no acute distress Ascultation: Bilateral: diminished breath sounds Results - Laboratory Findings CBC and BMP: 10/29/17 21:37 10/30/17 14:05 Abnormal lab findings: Abnormal Labs 10/29/17 10/29/17 10/29/17 21:37 21:37 23:46 WBC 46.7 H* RBC 5.86 H Hgb 16.4 H Hct 54.0 H RDW 16.4 H Plt Count 656 H Lymphocytes % (Manual) 52.5 H Seg Neutrophils # Man 19.1 H Lymphocytes # (Manual) 24.5 H Monocytes # (Manual) 1.6 H Sodium Potassium Chloride BUN Creatinine Glucose Lactic Acid 2.80 H* Calcium C-Reactive Protein Urine WBC (Auto) > 182.0 H 10/30/17 10/30/17 10/30/17 01:53 03:05 05:20 WBC RBC Hgb Hct RDW Plt Count Lymphocytes % (Manual) Seg Neutrophils # Man Lymphocytes # (Manual) Monocytes # (Manual) Sodium 177 H* 175 H* 180 H* Potassium 3.4 L Chloride 133.3 H 135.5 H 140 H BUN 74 H 66 H 65 H Creatinine 2.6 H 2.0 H 1.8 H Glucose 146 H 122 H 130 H Lactic Acid Calcium 7.8 L D 7.7 L C-Reactive Protein Urine WBC (Auto) 10/30/17 10/30/17 10/30/17 10:00 13:35 14:05 WBC RBC Hgb Hct RDW Plt Count Lymphocytes % (Manual) Seg Neutrophils # Man Lymphocytes # (Manual) Monocytes # (Manual) Sodium 175 H* 175 H* Potassium 3.4 L D Chloride 137.4 H 136.4 H BUN 57 H 55 H Creatinine 1.4 H 1.5 H Glucose 164 H 152 H Lactic Acid Calcium 8.2 L 8.2 L C-Reactive Protein 2.10 H Urine WBC (Auto) - Diagnostic Findings CT scan - chest: image reviewed Assessment and Plan 67 y/o female, with right upper lobe nodule, leuckocytosis, hypernatremia and renal failure, unknown if acute or acute on chronic. Given patient's mental state, unable to ask questions regarding history. Most likely this is not new but without proper history tough to say if this is malignant or not. Appears patient has baseline dementia, not sure if family is involved that could give more history. Recommend the followin. Attempt to find family if any, then can ask them further history (i.e, do they know about this nodule, has it been worked up, etc) 2. if no family, given mental state, she would not be a candidate for therapy, especially if this is greater than stage 1 disease if malignancy. Also without family, no consent could be obtained for biopsy. Could consider outpatient PET to see if it lights up. 3. Agree with abdominal CT 4. Bottom, line, not much else can be done for the work up of the nodule at this time, without family or further history. Will continue to follow
[2017-10-30] MEDS ORDERED: ZOSYN/NS 2.25 GM/50ML 2.25 GM/50 ML BAG IV SCH (16:00)
--- NOTE | 2017-10-30 16:18 | Consultation ---
History of Present Illness - Reason for Consult Consult date: 10/30/17 (consult dictated, discussed with hospitalist) Past History Past Medical History: other (unable to obtain) Social history: other (unable to obtain) Family history: other (unable to obtain) Medications and Allergies Allergies Allergy/AdvReac Type Severity Reaction Status Date / Time No Known Allergies Allergy Unverified 10/29/17 21:26 Home Medications Medication Instructions Recorded Confirmed Last Taken Type Acetaminophen [Acetaminophen ER] 650 mg PO BID 10/30/17 10/30/17 Unknown History Cranberry Fruit [Cranberry] 405 mg PO QDAY 10/30/17 10/30/17 Unknown History Donepezil [Aricept] 10 mg PO QHS 10/30/17 10/30/17 Unknown History Escitalopram [Lexapro] 10 mg PO DAILY 10/30/17 10/30/17 Unknown History Ferrous Sulfate [Ferosul Oral Liq 300 mg PO QAM 10/30/17 10/30/17 Unknown History 300 Mg/6.82 Ml] Folic Acid [Folvite] 1 mg PO QDAY 10/30/17 10/30/17 Unknown History Potassium Chloride [Klor-Con 10 meq PO QDAY 10/30/17 10/30/17 Unknown History Sprinkle] Sennosides [Senna] 8.6 mg PO QHS 10/30/17 10/30/17 Unknown History Valproic Acid (As Sodium Salt) 250 mg PO TID 10/30/17 10/30/17 Unknown History [Depakene] Zantac 150 MG TAB 75 mg HS 10/30/17 10/30/17 Unknown History Active Meds: Active Medications Acetaminophen (Tylenol) 650 mg PO Q4H PRN PRN Reason: Pain MILD(1-3)/Fever >100.5/JAIME Bisacodyl (Dulcolax) 10 mg [place] QDAY PRN PRN Reason: Constipation unrelieved by MOM Enoxaparin Sodium (Lovenox) 30 mg SUB-Q QDAY [facility] Last Admin: 10/30/17 12:32 Dose: 30 mg Dextrose (D5w) 1,000 mls @ 75 mls/hr IV DIRECT [facility] Last Admin: 10/30/17 05:58 Dose: 75 mls/hr Piperacillin Sod/Tazobactam Sod (Zosyn/Ns 2.25 Gm/50ml) 2.25 gm in 50 mls @ 100 mls/hr IV Q6H [facility] Magnesium Hydroxide (Milk Of Magnesia) 30 ml PO Q4H PRN PRN Reason: Constipation Ondansetron HCl (Zofran) 4 mg IV Q8H PRN PRN Reason: N/V unrelieved by Reglan Exam - Constitutional Vitals: Temp Pulse Resp BP Pulse Ox 97.6 F 62 22 138/46 96 10/30/17 12:38 10/30/17 12:38 10/30/17 12:38 10/30/17 12:38 10/30/17 12:38 Results - Labs CBC & Chem 7: 10/29/17 21:37 10/30/17 14:05 Labs: Abnormal lab results 10/29/17 10/29/17 10/29/17 Range/Units 21:37 21:37 23:46 WBC 46.7 H* (4.5-11.0) K/mm3 RBC 5.86 H (3.65-5.03) M/mm3 Hgb 16.4 H (10.1-14.3) gm/dl Hct 54.0 H (30.3-42.9) % RDW 16.4 H (13.2-15.2) % Plt Count 656 H (140-440) K/mm3 Lymphocytes % (Manual) 52.5 H (13.4-35.0) % Seg Neutrophils # Man 19.1 H (1.8-7.7) K/mm3 Lymphocytes # (Manual) 24.5 H (1.2-5.4) K/mm3 Monocytes # (Manual) 1.6 H (0.0-0.8) K/mm3 Sodium (137-145) mmol/L Potassium (3.6-5.0) mmol/L Chloride (98-107) mmol/L BUN (7-17) mg/dL Creatinine (0.7-1.2) mg/dL Glucose (65-100) mg/dL Lactic Acid 2.80 H* (0.7-2.0) mmol/L Calcium (8.4-10.2) mg/dL C-Reactive Protein (0.00-1.30) mg/dL Urine WBC (Auto) > 182.0 H (0.0-6.0) /HPF 10/30/17 10/30/17 10/30/17 Range/Units 01:53 03:05 05:20 WBC (4.5-11.0) K/mm3 RBC (3.65-5.03) M/mm3 Hgb (10.1-14.3) gm/dl Hct (30.3-42.9) % RDW (13.2-15.2) % Plt Count (140-440) K/mm3 Lymphocytes % (Manual) (13.4-35.0) % Seg Neutrophils # Man (1.8-7.7) K/mm3 Lymphocytes # (Manual) (1.2-5.4) K/mm3 Monocytes # (Manual) (0.0-0.8) K/mm3 Sodium 177 H* 175 H* 180 H* (137-145) mmol/L Potassium 3.4 L (3.6-5.0) mmol/L Chloride 133.3 H 135.5 H 140 H (98-107) mmol/L BUN 74 H 66 H 65 H (7-17) mg/dL Creatinine 2.6 H 2.0 H 1.8 H (0.7-1.2) mg/dL Glucose 146 H 122 H 130 H (65-100) mg/dL Lactic Acid (0.7-2.0) mmol/L Calcium 7.8 L D 7.7 L (8.4-10.2) mg/dL C-Reactive Protein (0.00-1.30) mg/dL Urine WBC (Auto) (0.0-6.0) /HPF 10/30/17 10/30/17 10/30/17 Range/Units 10:00 13:35 14:05 WBC (4.5-11.0) K/mm3 RBC (3.65-5.03) M/mm3 Hgb (10.1-14.3) gm/dl Hct (30.3-42.9) % RDW (13.2-15.2) % Plt Count (140-440) K/mm3 Lymphocytes % (Manual) (13.4-35.0) % Seg Neutrophils # Man (1.8-7.7) K/mm3 Lymphocytes # (Manual) (1.2-5.4) K/mm3 Monocytes # (Manual) (0.0-0.8) K/mm3 Sodium 175 H* 175 H* (137-145) mmol/L Potassium 3.4 L D (3.6-5.0) mmol/L Chloride 137.4 H 136.4 H (98-107) mmol/L BUN 57 H 55 H (7-17) mg/dL Creatinine 1.4 H 1.5 H (0.7-1.2) mg/dL Glucose 164 H 152 H (65-100) mg/dL Lactic Acid (0.7-2.0) mmol/L Calcium 8.2 L 8.2 L (8.4-10.2) mg/dL C-Reactive Protein 2.10 H (0.00-1.30) mg/dL Urine WBC (Auto) (0.0-6.0) /HPF
[2017-10-30 19:03] LABS: Chloride, Urine 80.3 mmolL (110-250); Creatinine,Urine 119.4 mg/dL (0.1-20.0)
[2017-10-30] MEDS ORDERED: ROCEPHIN/NS 2 GM/100 ML 2 GM/100 ML BAG IV ONE (23:48)
[2017-10-31] MEDS: ZOSYN/NS 2.25 GM/50ML 2.25 GM/50 ML BAG IV SCH ×5 (00:59→21:00)
[2017-10-31] MEDS: D5W 1,000 ML IV SCH ×3 (01:00→22:49)
--- NOTE | 2017-10-31 03:25 | Consultation ---
RENAL CONSULTATION REASON FOR CONSULTATION: Acute renal failure and hypernatremia. HISTORY OF PRESENT ILLNESS: This 67-year-old female was sent from residential for evaluation of abnormal labs. The patient's chart was reviewed and discussed with the hospitalist. Unable to obtain much information from the patient at present time. The patient has history of dementia and depression. Her admission labs revealed WBC count of 46.7, hemoglobin of 16.4. Sodium level of 175, BUN of 66, creatinine of 2.0. Urinalysis showed large leukocyte esterase, urine wbc's greater than 182. She was reported to have blood pressure of 94/66, heart rate of 99, temperature of 98 in the Emergency Room. PAST MEDICAL HISTORY: Dementia and depression. PERSONAL HISTORY, FAMILY HISTORY: Unknown. ALLERGIES: No known allergies. CURRENT MEDICATIONS: Ceftriaxone 2 g once a day, Lovenox 30 mg once a day, IV Zosyn 2.25 g q. 6 hours. REVIEW OF SYSTEMS: Unable to obtain. PHYSICAL EXAMINATION: GENERAL: The patient is alert, chronically ill-looking female, noncommunicative. VITAL SIGNS: Blood pressure 129/61, pulse 83, afebrile. HEENT: Head is normocephalic. Eyes: Pupils reactive. Oral mucosa, tongue and lips are dry. NECK: No JVD. No thyroid enlargement. LUNGS: Clear. HEART: S1, S2 regular. No pericardial rub. ABDOMEN: Soft. Bowel sounds present. No masses palpable. EXTREMITIES: No significant edema. DIAGNOSTIC DATA: As reviewed in the chart. Sodium 175, potassium 4.5, chloride 137, CO2 22, BUN 57, creatinine 1.4, glucose 164, calcium 8.2. WBC is 46.7, hemoglobin 16.4, hematocrit 54.0, platelets 656. Renal ultrasound, right kidney was normal, unable to obtain left kidney due to the patient's uncooperation. Chest CT without contrast was reported to be limited exam because of motion artifact, no evidence of pneumonia or congestion. ASSESSMENT AND PLAN: 1. Acute renal failure, most likely prerenal azotemia. 2. Dehydration with severe hypernatremia. 3. Pyuria with urinary tract infection with possible sepsis. 4. Dementia. 5. Depression. 6. Leukocytosis. 1. Check urine lytes and urine osmolality. Suggest to increase free water intake. Adjust medications per renal function. 2. Encephalopathy. 3. Hypocalcemia with a calcium level of 8.2. 4. Lactic acid level 2.8. Suggest calcium supplements. JOB# [id number] DELONTE/KOJO
[2017-10-31 03:58] LABS: Hematocrit 36.4 % (30.3-42.9); Hemoglobin 11.4 gm/dl (10.1-14.3); Mean Corpuscular HGB Conc 31 % (30-34); Mean Corpuscular Hemoglobin 29 pg (28-32); Mean Corpuscular Volume 92 fl (79-97); Platelet Count 322 K/mm3 (140-440); Red Blood Count 3.97 M/mm3 (3.65-5.03); Red Cell Distribution Width 15.7 % (13.2-15.2)
[2017-10-31 04:17] LABS: Calcium 8.1 mg/dL (8.4-10.2)
[2017-10-31 06:15] LABS: Band Neutrophils # (Manual) 2.1 K/mm3; Basophils % (Manual) 0 % (0.0-1.8); Eosinophils % (Manual) 0 % (0.0-4.3); Total Cells Counted 100
[2017-10-31 06:16] LABS: Anisocytosis Few; Ovalocytes Few
[2017-10-31 06:17] LABS: Platelet Estimate Consistent w Auto; Smudge Cells Few
--- NOTE | 2017-10-31 09:43 | Progress Note ---
Assessment and Plan - Patient Problems (1) Hypernatremia Current Visit: Yes Status: Acute Plan to address problem: dehydration---encourage oral water intake. IVF as ordered, monitor Sodium levels , avoid rapid correction. (2) MARCY (acute kidney injury) Current Visit: Yes Status: Acute Plan to address problem: renal function getting better with hydration (3) Sepsis Current Visit: Yes Status: Acute Qualifiers: Sepsis type: sepsis due to unspecified organism Qualified Code(s): A41.9 - Sepsis, unspecified organism Plan to address problem: ID notes reviewed. Follow up on cultures (4) UTI (urinary tract infection) Current Visit: Yes Status: Acute Qualifiers: Urinary tract infection type: acute cystitis Hematuria presence: without hematuria Qualified Code(s): N30.00 - Acute cystitis without hematuria Subjective Date of service: 10/31/17 Interval history: more alert today, not in distress Objective - Vital Signs Vital signs: Vital Signs - 12hr 10/30/17 10/31/17 22:00 08:25 Temperature 98.0 F Pulse Rate 80 Respiratory 18 Rate Respiratory 20 Rate [Back] Respiratory 20 Rate [ Generalized] Blood Pressure 119/49 O2 Sat by Pulse 92 Oximetry - General Appearance General appearance: chronically ill EENT: mucous membranes dry Neck: no JVD Respiratory: Present: Decreased Breath Sounds Cardiology: regular Gastrointestinal: normoactive bowel sounds Musculoskeletal: other (no edema) - Lab 10/31/17 03:12 10/31/17 03:12 Most recent lab results Calcium 8.1 mg/dL (8.4-10.2) L 10/31/17 03:12 Urine Creatinine 119.4 mg/dL (0.1-20.0) H 10/30/17 16:28 Urine Sodium 99 mmol/L 10/30/17 16:28
[2017-10-31] MEDS: LOVENOX SUB-Q SCH (09:50)
--- NOTE | 2017-10-31 12:20 | Progress Note ---
Assessment and Plan Assessment: 1) Sepsis: leukocytosis better. Etiology likely from UTI +/- ?occult source ? malignancy. CRP=2.1 2) UTI 3) RUL lung nodule ? malignancy 4) Hypernatremia - better 5) AMS - from high sodium / infection ? - better Plan: -follow-up blood cultures, urine culture, procalcitonin -consult pulmonary -obtain abdominal CT - pending -continue zosyn for now-will stop soon if negative work-up Thank you Dr Epps for your consultation, will follow up with you. Nelly Sauer MD Infectious Diseases Specialist [facility] ([facility]) M [phone] O [phone] Subjective Date of service: 10/31/17 Principal diagnosis: leukomoid reaction Interval history: Feels ok no complaints, no fever. Microbiology: blood culture 10/30 ngtd Current Antimicrobials: Zosyn Previous Antimicrobials: Ceftriaxone Objective - Exam Narrative Exam: General appearance: Alert in NAD, conversant Eyes: anicteric sclerae, moist conjunctivae; no lid-lag; PERRLA HENT: Atraumatic; oropharynx clear with moist mucous membranes and no mucosal ulcerations/no oral thrush; normal hard and soft palate. Normal external ears. Neck: Trachea midline; supple, no thyromegaly or lymphadenopathy Lungs: CTA CV: RRR Abdomen: Soft, non-tender Extremities: No peripheral edema or extremity lymphadenopathy Skin: Normal temperature, turgor and texture; no rash, ulcers or subcutaneous nodules Psych: not appropriate repeating same answers. Neuro: alert and oriented x 3. Moving all extermities Lines: No CVL / PICC - Constitutional Vitals: Vital Signs Temp Pulse Resp BP Pulse Ox 98.0 F 80 18 119/49 92 10/31/17 08:25 10/31/17 08:25 10/31/17 08:25 10/31/17 08:25 10/31/17 08:25 Temperature -Last 24 Hours Temperature 98.0 F Temperature 98.3 F Temperature 98.2 F Temperature 97.6 F - Labs CBC & Chem 7: 10/31/17 03:12 10/31/17 03:12 Labs: Abnormal lab results 10/30/17 10/30/17 10/30/17 Range/Units 13:35 14:05 16:28 WBC (4.5-11.0) K/mm3 RDW (13.2-15.2) % Seg Neutrophils # Man (1.8-7.7) K/mm3 Lymphocytes # (Manual) (1.2-5.4) K/mm3 Monocytes # (Manual) (0.0-0.8) K/mm3 Sodium 175 H* (137-145) mmol/L Potassium 3.4 L D (3.6-5.0) mmol/L Chloride 136.4 H (98-107) mmol/L BUN 55 H (7-17) mg/dL Creatinine 1.5 H (0.7-1.2) mg/dL Glucose 152 H (65-100) mg/dL Calcium 8.2 L (8.4-10.2) mg/dL C-Reactive Protein 2.10 H (0.00-1.30) mg/dL Urine Creatinine 119.4 H (0.1-20.0) mg/dL Urine Chloride 80.3 L (110-250) mmolL 10/31/17 10/31/17 Range/Units 03:12 03:12 WBC 20.6 H (4.5-11.0) K/mm3 RDW 15.7 H (13.2-15.2) % Seg Neutrophils # Man 11.3 H (1.8-7.7) K/mm3 Lymphocytes # (Manual) 5.8 H (1.2-5.4) K/mm3 Monocytes # (Manual) 1.4 H (0.0-0.8) K/mm3 Sodium 172 H* (137-145) mmol/L Potassium 3.4 L (3.6-5.0) mmol/L Chloride 131.0 H (98-107) mmol/L BUN 38 H (7-17) mg/dL Creatinine (0.7-1.2) mg/dL Glucose 164 H (65-100) mg/dL Calcium 8.1 L (8.4-10.2) mg/dL C-Reactive Protein (0.00-1.30) mg/dL Urine Creatinine (0.1-20.0) mg/dL Urine Chloride (110-250) mmolL
--- NOTE | 2017-10-31 14:43 | Cat Scan Report ---
CT abdomen and pelvis without contrast: Source of her leukemoid reaction. Transverse images are obtained from lower chest to the ischium. Oral but no IV contrast administered. Coronal and sagittal 2-D reformatted images included. Examination compromised by constant patient motion. The visualized lungs are normal. The liver, gallbladder, stomach, and spleen appear normal. The pancreas is poorly visualized but no gross abnormality. There is a 9 mm circumscribed exophytic high density mass extending laterally from the lower pole of the right kidney. The kidneys otherwise appear unremarkable bilaterally. The abdominal aorta is unremarkable as are the adrenal glands. The small bowel is opacified and appears grossly normal. There is mild gaseous distention of colon loops. No obvious inflammatory changes or free fluid noted. No free air. Sections of the pelvis demonstrates normal size reproductive organs. There is a Guardado catheter within the bladder. The bones appear generally demineralized but no focal lesion. Impressions: 1. High density right renal cyst. 2. Study compromised by motion with no significant pathology identified.
--- NOTE | 2017-10-31 15:56 | Progress Note ---
Assessment and Plan Assessment and plan: Patient is 67-year-old woman from a [facility] with a history of mental disorder who presents with altered mental status and abnormal labs (no prior hospitalization in EMR). She was found to have a sodium of 177, white blood cell count 46.7 CT chest without contrast reported as no pneumonia, spiculated noncalcified nodule in the posterior segment of the right upper lung abutting the major fissure with a 14 mm diameter -Acute metabolic encephalopathy: Treat underlying cause -Severe hypernatremia: Consulted nephrology and d/w Dr. Toney should be on D5W -Severe leukocytosis, severely dehydrated and FTT, ?Cancer: consult heme/onc -ARF, vasomotor nephropathy: IVF -Mild malnutrition: poor intake, ?peg -Lung nodule ?lung Cancer: consulted pulmonology -DVT/GI prophylaxis reviewed She is from [facility] [place] and [place], [place] will [place] fax [place] a form Unable to do renal us due to mental state ?mental baseline, ?mental retardation Recheck bmp 10/31/17: She is eating more and less confused. I called Stephanie Lemus, assigned case management (x2 years)/[place]/state guardian @ [phone] from [employer]. She will need two physicians to justify if PEG tube is needed or any procedure. Ms. Lemus is not aware of any prior diagnosis of Lung nodule. Also, [facility] may not take her back with PEG tube. Ms. Ho will meet me tomorrow. History Interval history: Patient was seen and examined. Follow-up on current diagnosis/altered mental status. Overnight uneventful. Imaging, nursing note, chart, labs and old chart reviewed. Patient is less confused and eating more. Hospitalist Physical - Physical exam Narrative exam: GEN: Thin and frail NAD, AWAKE, ALERT, ORIENTATED 1 HEENT: NCAT, EOMI, PERRL, OP dry and pasty lips NECK: supple, no adenopathy, no thyromegaly, no JVD CVS/HEART: RRR, NORMAL S1S2, NO JVD, pulses present bilaterally CHEST/LUNGS: CTA B, Symmetrical chest expansion, good air entry bilaterally GI/Abdomen: soft, NTND, good bowel sounds, no guarding or rebound /Bladder: no suprapubic tenderness, no CVA or paraspinal tenderness EXT/Skin: mucous membranes dry MSK: FROM x 4 Neuro: CN 2-12 grossly intact, no new focal deficits Psych: calm - Constitutional Vitals: Temp Pulse Resp BP Pulse Ox 99.8 F H 80 18 115/70 92 10/31/17 13:16 10/31/17 13:16 10/31/17 13:16 10/31/17 13:16 10/31/17 13:16 Results - Labs CBC & Chem 7: 10/31/17 03:12 10/31/17 03:12 Labs: Laboratory Last Values WBC 20.6 K/mm3 (4.5-11.0) H 10/31/17 03:12 RBC 3.97 M/mm3 (3.65-5.03) 10/31/17 03:12 Hgb 11.4 gm/dl (10.1-14.3) D 10/31/17 03:12 Hct 36.4 % (30.3-42.9) D 10/31/17 03:12 MCV 92 fl (79-97) 10/31/17 03:12 MCH 29 pg (28-32) 10/31/17 03:12 MCHC 31 % (30-34) 10/31/17 03:12 RDW 15.7 % (13.2-15.2) H 10/31/17 03:12 Plt Count 322 K/mm3 (140-440) 10/31/17 03:12 Lymph % (Auto) Video Tape Editor 10/29/17 21:37 Trigg % (Auto) Video Tape Editor 10/29/17 21:37 Eos % (Auto) Video Tape Editor 10/29/17 21:37 Baso % (Auto) Video Tape Editor 10/29/17 21:37 Lymph # Video Tape Editor 10/31/17 03:12 Trigg # Video Tape Editor 10/29/17 21:37 Eos # Video Tape Editor 10/29/17 21:37 Baso # Video Tape Editor 10/29/17 21:37 Add Manual Diff Complete 10/31/17 03:12 Total Counted 100 10/31/17 03:12 Seg Neutrophils % Video Tape Editor 10/29/17 21:37 Seg Neuts % (Manual) 55.0 % (40.0-70.0) 10/31/17 03:12 Band Neutrophils % 10.0 % 10/31/17 03:12 Lymphocytes % (Manual) 28.0 % (13.4-35.0) 10/31/17 03:12 Reactive Lymphs % (Man) 0 % 10/31/17 03:12 Monocytes % (Manual) 7.0 % (0.0-7.3) 10/31/17 03:12 Eosinophils % (Manual) 0 % (0.0-4.3) 10/31/17 03:12 Basophils % (Manual) 0 % (0.0-1.8) 10/31/17 03:12 Metamyelocytes % 0 % 10/31/17 03:12 Myelocytes % 0 % 10/31/17 03:12 Promyelocytes % 0 % 10/31/17 03:12 Blast Cells % 0 % 10/31/17 03:12 Nucleated RBC % Not Reportable 10/31/17 03:12 Seg Neutrophils # Video Tape Editor 10/29/17 21:37 Seg Neutrophils # Man 11.3 K/mm3 (1.8-7.7) H 10/31/17 03:12 Band Neutrophils # 2.1 K/mm3 10/31/17 03:12 Lymphocytes # (Manual) 5.8 K/mm3 (1.2-5.4) H 10/31/17 03:12 Abs React Lymphs (Man) 0.0 K/mm3 10/31/17 03:12 Monocytes # (Manual) 1.4 K/mm3 (0.0-0.8) H 10/31/17 03:12 Eosinophils # (Manual) 0.0 K/mm3 (0.0-0.4) 10/31/17 03:12 Basophils # (Manual) 0.0 K/mm3 (0.0-0.1) 10/31/17 03:12 Metamyelocytes # 0.0 K/mm3 10/31/17 03:12 Myelocytes # 0.0 K/mm3 10/31/17 03:12 Promyelocytes # 0.0 K/mm3 10/31/17 03:12 Blast Cells # 0.0 K/mm3 10/31/17 03:12 WBC Morphology Not Reportable 10/31/17 03:12 Hypersegmented Neuts Not Reportable 10/31/17 03:12 Hyposegmented Neuts Not Reportable 10/31/17 03:12 Hypogranular Neuts Not Reportable 10/31/17 03:12 Smudge Cells Few 10/31/17 03:12 Toxic Granulation Not Reportable 10/31/17 03:12 Toxic Vacuolation Not Reportable 10/31/17 03:12 Dohle Bodies Not Reportable 10/31/17 03:12 Pelger-Huet Anomaly Not Reportable 10/31/17 03:12 Boo Rods Not Reportable 10/31/17 03:12 Platelet Estimate Consistent w auto 10/31/17 03:12 Clumped Platelets Not Reportable 10/31/17 03:12 Plt Clumps, EDTA Not Reportable 10/31/17 03:12 Large Platelets Not Reportable 10/31/17 03:12 Giant Platelets Not Reportable 10/31/17 03:12 Platelet Satelliting Not Reportable 10/31/17 03:12 Plt Morphology Comment Not Reportable 10/31/17 03:12 RBC Morphology Not Reportable 10/31/17 03:12 Dimorphic RBCs Not Reportable 10/31/17 03:12 Polychromasia Not Reportable 10/31/17 03:12 Hypochromasia Not Reportable 10/31/17 03:12 Poikilocytosis Not Reportable 10/31/17 03:12 Anisocytosis Few 10/31/17 03:12 Microcytosis Not Reportable 10/31/17 03:12 Macrocytosis Not Reportable 10/31/17 03:12 Spherocytes Not Reportable 10/31/17 03:12 Pappenheimer Bodies Not Reportable 10/31/17 03:12 Sickle Cells Not Reportable 10/31/17 03:12 Target Cells Not Reportable 10/31/17 03:12 Tear Drop Cells Not Reportable 10/31/17 03:12 Ovalocytes Few 10/31/17 03:12 Helmet Cells Not Reportable 10/31/17 03:12 [place] Bodies Not Reportable 10/31/17 03:12 [place] Rings Not Reportable 10/31/17 03:12 [place] Cells Not Reportable 10/31/17 03:12 Bite Cells Not Reportable 10/31/17 03:12 Crenated Cell Not Reportable 10/31/17 03:12 Elliptocytes Not Reportable 10/31/17 03:12 Acanthocytes (Spur) Not Reportable 10/31/17 03:12 Rouleaux Not Reportable 10/31/17 03:12 Hemoglobin C Crystals Not Reportable 10/31/17 03:12 Schistocytes Not Reportable 10/31/17 03:12 Malaria parasites Not Reportable 10/31/17 03:12 Josue Bodies Not Reportable 10/31/17 03:12 Hem Pathologist Commnt No 10/31/17 03:12 Sodium 172 mmol/L (137-145) H* 10/31/17 03:12 Potassium 3.4 mmol/L (3.6-5.0) L 10/31/17 03:12 Chloride 131.0 mmol/L (98-107) H 10/31/17 03:12 Carbon Dioxide 26 mmol/L (22-30) 10/31/17 03:12 Anion Gap 16 mmol/L 10/31/17 03:12 BUN 38 mg/dL (7-17) H 10/31/17 03:12 Creatinine 1.1 mg/dL (0.7-1.2) 10/31/17 03:12 Estimated GFR 49 ml/min 10/31/17 03:12 BUN/Creatinine Ratio 35 % 10/31/17 03:12 Glucose 164 mg/dL (65-100) H 10/31/17 03:12 Lactic Acid 2.80 mmol/L (0.7-2.0) H* 10/29/17 21:37 Calcium 8.1 mg/dL (8.4-10.2) L 10/31/17 03:12 Total Bilirubin 0.30 mg/dL (0.1-1.2) 10/30/17 01:53 AST 33 units/L (5-40) 10/30/17 01:53 ALT 30 units/L (7-56) 10/30/17 01:53 Alkaline Phosphatase 116 units/L (35-129) 10/30/17 01:53 C-Reactive Protein 2.10 mg/dL (0.00-1.30) H 10/30/17 13:35 Total Protein 7.6 g/dL (6.3-8.2) 10/30/17 01:53 Albumin 4.0 g/dL (3.9-5) 10/30/17 01:53 Albumin/Globulin Ratio 1.1 % 10/30/17 01:53 Urine Color Elle (Yellow) 10/29/17 23:46 Urine Turbidity Cloudy (Clear) 10/29/17 23:46 Urine pH 5.0 (5.0-7.0) 10/29/17 23:46 Ur Specific [place] 1.021 (1.003-1.030) 10/29/17 23:46 Urine Protein 30 mg/dl mg/dL (Negative) 10/29/17 23:46 Urine Glucose (UA) Neg mg/dL (Negative) 10/29/17 23:46 Urine Ketones Neg mg/dL (Negative) 10/29/17 23:46 Urine Blood Neg (Negative) 10/29/17 23:46 Urine Nitrite Neg (Negative) 10/29/17 23:46 Urine Bilirubin Neg (Negative) 10/29/17 23:46 Urine Urobilinogen 2.0 mg/dL (<2.0) 10/29/17 23:46 Ur Leukocyte Esterase Lg (Negative) 10/29/17 23:46 Urine WBC (Auto) > 182.0 /HPF (0.0-6.0) H 10/29/17 23:46 Urine RBC (Auto) 9.0 /HPF (0.0-6.0) 10/29/17 23:46 Urine Bacteria (Auto) 4+ /HPF (Negative) 10/29/17 23:46 Urine WBC Clumps 3+ /HPF 10/29/17 23:46 Hyaline Casts 8 /LPF 10/29/17 23:46 Urine Mucus 3+ /HPF 10/29/17 23:46 Urine Osmolality 799 Mosm/kg 10/30/17 16:28 Urine Creatinine 119.4 mg/dL (0.1-20.0) H 10/30/17 16:28 Urine Sodium 99 mmol/L 10/30/17 16:28 Urine Chloride 80.3 mmolL (110-250) L 10/30/17 16:28
[2017-10-31] MEDS ORDERED: K-DUR PO ONE (16:00)
[2017-11-01] MEDS: ZOSYN/NS 2.25 GM/50ML 2.25 GM/50 ML BAG IV SCH ×2 (02:14→10:11)
[2017-11-01 05:36] LABS: Mean Corpuscular HGB Conc 31 % (30-34); Mean Corpuscular Hemoglobin 28 pg (28-32); Mean Corpuscular Volume 91 fl (79-97); Platelet Count 281 K/mm3 (140-440); Red Blood Count 4.02 M/mm3 (3.65-5.03); Red Cell Distribution Width 15.7 % (13.2-15.2)
[2017-11-01 05:40] LABS: Hematocrit 36.6 % (30.3-42.9); Hemoglobin 11.2 gm/dl (10.1-14.3)
[2017-11-01 06:14] LABS: BUN/Creatinine Ratio 20; Blood Urea Nitrogen 18 mg/dL (7-17); Calcium 8.2 mg/dL (8.4-10.2); Hemolysis Index 18
--- NOTE | 2017-11-01 08:59 | Progress Note ---
Subjective Principal diagnosis: leukomoid reaction Interval history: Patient was seen today for follow-up on multiple renal related issues Events of this hospitalization noted, Patient denies having any chest pain pressure or shortness of breath Vitals labs intake output medications were reviewed Social history: Reviewed Allergies: Reviewed Family history: Reviewed Physical examination HEENT: Oral mucosa moist no pallor or icterus Neck: Supple no JVD Chest: Clear to auscultation anteriorly CVS: Regular rate and rhythm S1 and S2 heard Abdomen: Soft nontender no suprapubic masses no organomegaly appreciable Extremity: Dry skin less than 1+ peripheral edema Musculoskeletal: No joint effusion noted in knees and ankle Neurological: Alert awake Dermatology: No petechial rashes Psychiatry: No evidence of any agitation and aggression noted Assessment and plan Acute kidney injury: Currently appears to be in remission, creatinine is normal Hypernatremia: Will reduce the rate of IV fluid to avoid rapid correction, changed to normal saline for now and follow Monitor daily labs intake and output Avoid any follow-up nephrotoxic medication We'll continue to follow and make recommendation from renal standpoint Objective - Vital Signs Vital signs: Vital Signs - 12hr 10/31/17 10/31/17 11/01/17 21:36 22:00 04:49 Temperature 97.8 F 98.6 F Pulse Rate 75 65 Respiratory 20 20 Rate Blood Pressure 140/74 136/60 O2 Sat by Pulse 93 95 92 Oximetry 11/01/17 08:20 Temperature 98.5 F Pulse Rate 61 Respiratory 18 Rate Blood Pressure 140/56 O2 Sat by Pulse 94 Oximetry - Lab 11/01/17 04:25 11/01/17 04:25 Most recent lab results Calcium 8.2 mg/dL (8.4-10.2) L 11/01/17 04:25 Magnesium 2.20 mg/dL (1.7-2.3) 11/01/17 04:25 Urine Creatinine 119.4 mg/dL (0.1-20.0) H 10/30/17 16:28 Urine Sodium 99 mmol/L 10/30/17 16:28
[2017-11-01] MEDS: LOVENOX SUB-Q SCH (10:17)
[2017-11-01] MEDS: D5W 1,000 ML IV SCH (10:18)
--- NOTE | 2017-11-01 12:32 | Progress Note ---
Assessment and Plan Assessment and plan: Patient is 67-year-old woman [facility] with a history of mental disorder, Advance dementia who presents with altered mental status and abnormal labs (no prior hospitalization in EMR). She was found to have a sodium of 177, white blood cell count 46.7 CT chest without contrast reported as no pneumonia, spiculated noncalcified nodule in the posterior segment of the right upper lung abutting the major fissure with a 14 mm diameter -Acute metabolic encephalopathy: Treat underlying cause -Severe hypernatremia: Consulted nephrology and d/w Dr. Toney should be on D5W -Severe leukocytosis, severely dehydrated and FTT, ?Cancer: consult heme/onc -ARF, vasomotor nephropathy, resolved with ivf -Mild malnutrition: poor intake, ?peg -Lung nodule ?lung Cancer: consulted pulmonology -DVT/GI prophylaxis reviewed 10/30/2017: per concrete mixer, Dr. Dominguez on 67 y/o female, with right upper lobe nodule, leuckocytosis, hypernatremia and renal failure, unknown if acute or acute on chronic. Given patient's mental state, unable to ask questions regarding history. Most likely this is not new but without proper history tough to say if this is malignant or not. Appears patient has baseline dementia, not sure if family is involved that could give more history. Recommend the followin. Attempt to find family if any, then can ask them further history (i.e, do they know about this nodule, has it been worked up, etc) 2. if no family, given mental state, she would not be a candidate for therapy, especially if this is greater than stage 1 disease if malignancy. Also without family, no consent could be obtained for biopsy. Could consider outpatient PET to see if it lights up. 3. Agree with abdominal CT 4. Bottom, line, not much else can be done for the work up of the nodule at this time, without family or further history." Will continue to follow She is [facility] [place] and [place], [place] will they [place] fax [place] a form Unable to do renal us due to mental state ?mental baseline, ?mental retardation 10/31/17: She is eating more and less confused. I called Stephanie Lemus, assigned case management (x2 years)/[place]/state guardian @ [phone] from [employer]. She will need two physicians to justify if PEG tube is needed or any procedure. Ms. Lemus is not aware of any prior diagnosis of Lung nodule. Also, [facility] may not take her back with PEG tube. Ms. Lemus will meet me tomorrow. 11/01/2017: d/w Ms. Lemus what to do about Lung nodule? d/w Dr. Dominguez==> outpatient PET scan first, if negative then nothing to be done, it positive needs biopsy, sedated. It appears she doesn't need PEG now, patient is eating and drinking well, just needs 1:1. Renal is following the hypernatremia and adjusting IVFs. Ordered am labs. Once sodium levels improves than d/c back to [facility]. Urine culture pending. History Interval history: Patient was seen and examined. Follow-up on current diagnosis/altered mental status. Overnight uneventful. Imaging, nursing note, chart, labs and old chart reviewed. Patient is less confused and eating more. Hospitalist Physical - Physical exam Narrative exam: GEN: Thin and frail NAD, AWAKE, ALERT, ORIENTATED 1 HEENT: NCAT, EOMI, PERRL, OP dry and pasty lips NECK: supple, no adenopathy, no thyromegaly, no JVD CVS/HEART: RRR, NORMAL S1S2, NO JVD, pulses present bilaterally CHEST/LUNGS: CTA B, Symmetrical chest expansion, good air entry bilaterally GI/Abdomen: soft, NTND, good bowel sounds, no guarding or rebound /Bladder: no suprapubic tenderness, no CVA or paraspinal tenderness EXT/Skin: mucous membranes dry MSK: FROM x 4 Neuro: CN 2-12 grossly intact, no new focal deficits Psych: calm - Constitutional Vitals: Temp Pulse Resp BP Pulse Ox 98.5 F 61 18 140/56 97 11/01/17 08:20 11/01/17 08:20 11/01/17 08:20 11/01/17 08:20 11/01/17 09:40 Results - Labs CBC & Chem 7: 11/01/17 04:25 11/01/17 04:25 Labs: Laboratory Last Values WBC 18.9 K/mm3 (4.5-11.0) H 11/01/17 04:25 RBC 4.02 M/mm3 (3.65-5.03) 11/01/17 04:25 Hgb 11.2 gm/dl (10.1-14.3) 11/01/17 04:25 Hct 36.6 % (30.3-42.9) 11/01/17 04:25 MCV 91 fl (79-97) 11/01/17 04:25 MCH 28 pg (28-32) 11/01/17 04:25 MCHC 31 % (30-34) 11/01/17 04:25 RDW 15.7 % (13.2-15.2) H 11/01/17 04:25 Plt Count 281 K/mm3 (140-440) 11/01/17 04:25 Lymph % (Auto) Hair Boiler 10/29/17 21:37 [place] % (Auto) Hair Boiler 10/29/17 21:37 Eos % (Auto) Hair Boiler 10/29/17 21:37 Baso % (Auto) Hair Boiler 10/29/17 21:37 Lymph # Hair Boiler 10/31/17 03:12 Mccone # Hair Boiler 10/29/17 21:37 Eos # Hair Boiler 10/29/17 21:37 Baso # Hair Boiler 10/29/17 21:37 Add Manual Diff Complete 10/31/17 03:12 Total Counted 100 10/31/17 03:12 Seg Neutrophils % Hair Boiler 10/29/17 21:37 Seg Neuts % (Manual) 55.0 % (40.0-70.0) 10/31/17 03:12 Band Neutrophils % 10.0 % 10/31/17 03:12 Lymphocytes % (Manual) 28.0 % (13.4-35.0) 10/31/17 03:12 Reactive Lymphs % (Man) 0 % 10/31/17 03:12 Monocytes % (Manual) 7.0 % (0.0-7.3) 10/31/17 03:12 Eosinophils % (Manual) 0 % (0.0-4.3) 10/31/17 03:12 Basophils % (Manual) 0 % (0.0-1.8) 10/31/17 03:12 Metamyelocytes % 0 % 10/31/17 03:12 Myelocytes % 0 % 10/31/17 03:12 Promyelocytes % 0 % 10/31/17 03:12 Blast Cells % 0 % 10/31/17 03:12 Nucleated RBC % Not Reportable 10/31/17 03:12 Seg Neutrophils # Hair Boiler 10/29/17 21:37 Seg Neutrophils # Man 11.3 K/mm3 (1.8-7.7) H 10/31/17 03:12 Band Neutrophils # 2.1 K/mm3 10/31/17 03:12 Lymphocytes # (Manual) 5.8 K/mm3 (1.2-5.4) H 10/31/17 03:12 Abs React Lymphs (Man) 0.0 K/mm3 10/31/17 03:12 Monocytes # (Manual) 1.4 K/mm3 (0.0-0.8) H 10/31/17 03:12 Eosinophils # (Manual) 0.0 K/mm3 (0.0-0.4) 10/31/17 03:12 Basophils # (Manual) 0.0 K/mm3 (0.0-0.1) 10/31/17 03:12 Metamyelocytes # 0.0 K/mm3 10/31/17 03:12 Myelocytes # 0.0 K/mm3 10/31/17 03:12 Promyelocytes # 0.0 K/mm3 10/31/17 03:12 Blast Cells # 0.0 K/mm3 10/31/17 03:12 WBC Morphology Not Reportable 10/31/17 03:12 Hypersegmented Neuts Not Reportable 10/31/17 03:12 Hyposegmented Neuts Not Reportable 10/31/17 03:12 Hypogranular Neuts Not Reportable 10/31/17 03:12 Smudge Cells Few 10/31/17 03:12 Toxic Granulation Not Reportable 10/31/17 03:12 Toxic Vacuolation Not Reportable 10/31/17 03:12 Dohle Bodies Not Reportable 10/31/17 03:12 Pelger-Huet Anomaly Not Reportable 10/31/17 03:12 Boo Rods Not Reportable 10/31/17 03:12 Platelet Estimate Consistent w auto 10/31/17 03:12 Clumped Platelets Not Reportable 10/31/17 03:12 Plt Clumps, EDTA Not Reportable 10/31/17 03:12 Large Platelets Not Reportable 10/31/17 03:12 Giant Platelets Not Reportable 10/31/17 03:12 Platelet Satelliting Not Reportable 10/31/17 03:12 Plt Morphology Comment Not Reportable 10/31/17 03:12 RBC Morphology Not Reportable 10/31/17 03:12 Dimorphic RBCs Not Reportable 10/31/17 03:12 Polychromasia Not Reportable 10/31/17 03:12 Hypochromasia Not Reportable 10/31/17 03:12 Poikilocytosis Not Reportable 10/31/17 03:12 Anisocytosis Few 10/31/17 03:12 Microcytosis Not Reportable 10/31/17 03:12 Macrocytosis Not Reportable 10/31/17 03:12 Spherocytes Not Reportable 10/31/17 03:12 Pappenheimer Bodies Not Reportable 10/31/17 03:12 Sickle Cells Not Reportable 10/31/17 03:12 Target Cells Not Reportable 10/31/17 03:12 Tear Drop Cells Not Reportable 10/31/17 03:12 Ovalocytes Few 10/31/17 03:12 Helmet Cells Not Reportable 10/31/17 03:12 [place] Bodies Not Reportable 10/31/17 03:12 [place] Rings Not Reportable 10/31/17 03:12 [place] Cells Not Reportable 10/31/17 03:12 Bite Cells Not Reportable 10/31/17 03:12 Crenated Cell Not Reportable 10/31/17 03:12 Elliptocytes Not Reportable 10/31/17 03:12 Acanthocytes (Spur) Not Reportable 10/31/17 03:12 Rouleaux Not Reportable 10/31/17 03:12 Hemoglobin C Crystals Not Reportable 10/31/17 03:12 Schistocytes Not Reportable 10/31/17 03:12 Malaria parasites Not Reportable 10/31/17 03:12 Josue Bodies Not Reportable 10/31/17 03:12 Hem Pathologist Commnt No 10/31/17 03:12 Sodium 156 mmol/L (137-145) H D 11/01/17 04:25 Potassium 4.3 mmol/L (3.6-5.0) D 11/01/17 04:25 Chloride 117.1 mmol/L (98-107) H 11/01/17 04:25 Carbon Dioxide 25 mmol/L (22-30) 11/01/17 04:25 Anion Gap 18 mmol/L 11/01/17 04:25 BUN 18 mg/dL (7-17) H 11/01/17 04:25 Creatinine 0.9 mg/dL (0.7-1.2) 11/01/17 04:25 Estimated GFR > 60 ml/min 11/01/17 04:25 BUN/Creatinine Ratio 20 % 11/01/17 04:25 Glucose 130 mg/dL (65-100) H 11/01/17 04:25 Lactic Acid 2.80 mmol/L (0.7-2.0) H* 10/29/17 21:37 Calcium 8.2 mg/dL (8.4-10.2) L 11/01/17 04:25 Magnesium 2.20 mg/dL (1.7-2.3) 11/01/17 04:25 Total Bilirubin 0.30 mg/dL (0.1-1.2) 10/30/17 01:53 AST 33 units/L (5-40) 10/30/17 01:53 ALT 30 units/L (7-56) 10/30/17 01:53 Alkaline Phosphatase 116 units/L (35-129) 10/30/17 01:53 C-Reactive Protein 2.10 mg/dL (0.00-1.30) H 10/30/17 13:35 Total Protein 7.6 g/dL (6.3-8.2) 10/30/17 01:53 Albumin 4.0 g/dL (3.9-5) 10/30/17 01:53 Albumin/Globulin Ratio 1.1 % 10/30/17 01:53 Urine Color Elle (Yellow) 10/29/17 23:46 Urine Turbidity Cloudy (Clear) 10/29/17 23:46 Urine pH 5.0 (5.0-7.0) 10/29/17 23:46 Ur Specific [place] 1.021 (1.003-1.030) 10/29/17 23:46 Urine Protein 30 mg/dl mg/dL (Negative) 10/29/17 23:46 Urine Glucose (UA) Neg mg/dL (Negative) 10/29/17 23:46 Urine Ketones Neg mg/dL (Negative) 10/29/17 23:46 Urine Blood Neg (Negative) 10/29/17 23:46 Urine Nitrite Neg (Negative) 10/29/17 23:46 Urine Bilirubin Neg (Negative) 10/29/17 23:46 Urine Urobilinogen 2.0 mg/dL (<2.0) 10/29/17 23:46 Ur Leukocyte Esterase Lg (Negative) 10/29/17 23:46 Urine WBC (Auto) > 182.0 /HPF (0.0-6.0) H 10/29/17 23:46 Urine RBC (Auto) 9.0 /HPF (0.0-6.0) 10/29/17 23:46 Urine Bacteria (Auto) 4+ /HPF (Negative) 10/29/17 23:46 Urine WBC Clumps 3+ /HPF 10/29/17 23:46 Hyaline Casts 8 /LPF 10/29/17 23:46 Urine Mucus 3+ /HPF 10/29/17 23:46 Urine Osmolality 799 Mosm/kg 10/30/17 16:28 Urine Creatinine 119.4 mg/dL (0.1-20.0) H 10/30/17 16:28 Urine Sodium 99 mmol/L 10/30/17 16:28 Urine Chloride 80.3 mmolL (110-250) L 10/30/17 16:28
--- NOTE | 2017-11-01 13:10 | Progress Note ---
Assessment and Plan Assessment: 1) Sepsis: leukocytosis better 46K-->18K. Etiology likely from UTI +/- ? occult source ? malignancy. CRP=2.1 2) UTI - urine cx was not sent 3) RUL lung nodule ? malignancy. CT abd showed renal cyst. 4) Hypernatremia - better 5) AMS - from high sodium / infection ? - better Plan: Diet and will -stop zosyn -start po levaquin total 7 days from 10/31 -monitor leukocytosis -lung nodule w/u limited in view of lack of family for consent. Agree with PET scan as an outpatient Thank you Dr Epps for your consultation, will follow up with you. Nelly Sauer MD Infectious Diseases Specialist [facility] ([facility] [phone] O [phone] Subjective Date of service: 11/01/17 Principal diagnosis: leukomoid reaction Interval history: Feels ok no complaints, no fever. Microbiology: blood culture 10/30 ngtd Current Antimicrobials: Zosyn Previous Antimicrobials: Ceftriaxone Objective - Exam Narrative Exam: General appearance: Alert in NAD, conversant Eyes: anicteric sclerae, moist conjunctivae; no lid-lag; PERRLA HENT: Atraumatic; oropharynx clear with moist mucous membranes and no mucosal ulcerations/no oral thrush; normal hard and soft palate. Normal external ears. Neck: Trachea midline; supple, no thyromegaly or lymphadenopathy Lungs: CTA CV: RRR Abdomen: Soft, non-tender Extremities: No peripheral edema or extremity lymphadenopathy Skin: Normal temperature, turgor and texture; no rash, ulcers or subcutaneous nodules Psych: not appropriate repeating same answers. Neuro: alert and oriented x 3. Moving all extermities Lines: No CVL / PICC - Constitutional Vitals: Vital Signs Temp Pulse Resp BP Pulse Ox 98.5 F 61 18 140/56 97 11/01/17 08:20 11/01/17 08:20 11/01/17 08:20 11/01/17 08:20 11/01/17 09:40 Temperature -Last 24 Hours Temperature 98.5 F Temperature 98.6 F Temperature 97.8 F Temperature 99.8 F - Labs CBC & Chem 7: 11/01/17 04:25 11/01/17 04:25 Labs: Abnormal lab results 11/01/17 11/01/17 Range/Units 04:25 04:25 WBC 18.9 H (4.5-11.0) K/mm3 RDW 15.7 H (13.2-15.2) % Sodium 156 H D (137-145) mmol/L Chloride 117.1 H (98-107) mmol/L BUN 18 H (7-17) mg/dL Glucose 130 H (65-100) mg/dL Calcium 8.2 L (8.4-10.2) mg/dL
--- NOTE | 2017-11-01 13:24 | Event Note ---
Date: 11/01/17 Called by Primary, patient is actually a [place] state and the guardian, is scheduled to come today. The guardian has no knowledge of this lung nodule. Discussed options with primary to discuss with guardian. would suggest obtaining PET scan first. If this area does not have any activity then work up is done and should be documented as a benign lesion. If the area does have activity, biopsy, most likely CT guided would be recommended vs wedge or lobectomy by CT surgery if no other areas in the body have abnormal uptake.
[2017-11-01] MEDS: LEVAQUIN PO SCH (17:19)
[2017-11-01] MEDS ORDERED: NACL 0.9% 1000 ML 1,000 ML IV SCH (19:00)
[2017-11-02 07:58] LABS: Hematocrit 35.3 % (30.3-42.9); Hemoglobin 11.3 gm/dl (10.1-14.3); Mean Corpuscular HGB Conc 32 % (30-34); Mean Corpuscular Hemoglobin 29 pg (28-32); Mean Corpuscular Volume 89 fl (79-97); Red Blood Count 3.97 M/mm3 (3.65-5.03); Red Cell Distribution Width 14.9 % (13.2-15.2)
[2017-11-02 08:08] LABS: Platelet Count 196 K/mm3 (140-440)
[2017-11-02 08:15] LABS: BUN/Creatinine Ratio 23; Blood Urea Nitrogen 14 mg/dL (7-17); Calcium 8.3 mg/dL (8.4-10.2); Hemolysis Index 27
[2017-11-02] MEDS: LOVENOX SUB-Q SCH (09:52)
[2017-11-02] MEDS: LEVAQUIN PO SCH (09:52)
--- NOTE | 2017-11-02 11:13 | Progress Note ---
Assessment and Plan Assessment and plan: Patient is 67[facility] with a history of mental disorder, Advance dementia who presents with altered mental status and abnormal labs (no prior hospitalization in EMR). She was found to have a sodium of 177, white blood cell count 46.7 CT chest without contrast reported as no pneumonia, spiculated noncalcified nodule in the posterior segment of the right upper lung abutting the major fissure with a 14 mm diameter Diagnosis Diagnoses: -E. coli UTI leading to ams/encephalopathy, lost of appetite and severe electrolyte imbalances -Acute metabolic encephalopathy: Treat underlying cause -Severe hypernatremia: Consulted nephrology and d/w Dr. Toney should be on D5W -Severe leukocytosis, severely dehydrated and FTT, ?Cancer: consult heme/onc -ARF, vasomotor nephropathy, resolved with ivf -Mild malnutrition: poor intake, ?peg -Lung nodule ?lung Cancer: consulted pulmonology -DVT/GI prophylaxis reviewed 10/30/2017: per rail assembler, Dr. Dominguez on 67 y/o female, with right upper lobe nodule, leuckocytosis, hypernatremia and renal failure, unknown if acute or acute on chronic. Given patient's mental state, unable to ask questions regarding history. Most likely this is not new but without proper history tough to say if this is malignant or not. Appears patient has baseline dementia, not sure if family is involved that could give more history. Recommend the followin. Attempt to find family if any, then can ask them further history (i.e, do they know about this nodule, has it been worked up, etc) 2. if no family, given mental state, she would not be a candidate for therapy, especially if this is greater than stage 1 disease if malignancy. Also without family, no consent could be obtained for biopsy. Could consider outpatient PET to see if it lights up. 3. Agree with abdominal CT 4. Bottom, line, not much else can be done for the work up of the nodule at this time, without family or further history." Will continue to follow She is from [facility] and she is [place] She is DNR, [place] will they will fax over a form Unable to do renal us due to mental state ?mental baseline, ?mental retardation 10/31/17: She is eating more and less confused. I called Stephanie Lemus, assigned case management (x2 years)/ha[place]/state guardian @ [phone] from [employer]. She will need two physicians to justify if PEG tube is needed or any procedure. Ms. Lemus is not aware of any prior diagnosis of Lung nodule. Also, [facility] may not take her back with PEG tube. Ms. Lemus will meet me tomorrow. 11/01/2017: d/w Ms. Lemus what to do about Lung nodule? d/w Dr. Dominguez==> outpatient PET scan first, if negative then nothing to be done, it positive needs biopsy, sedated. It appears she doesn't need PEG now, patient is eating and drinking well, just needs 1:1. Renal is following the hypernatremia and adjusting IVFs. Ordered am labs. Once sodium levels improves than d/c back to [facility]. Urine culture pending. 11/02/2017: E. coli uti, back to [place] once cleared by renal History Interval history: Patient was seen and examined. Follow-up on current diagnosis/altered mental status. Overnight uneventful. Imaging, nursing note, chart, labs and old chart reviewed. Patient is less confused and eating more. Hospitalist Physical - Physical exam Narrative exam: GEN: Thin and frail NAD, AWAKE, ALERT, ORIENTATED 1 HEENT: NCAT, EOMI, PERRL, OP dry and pasty lips NECK: supple, no adenopathy, no thyromegaly, no JVD CVS/HEART: RRR, NORMAL S1S2, NO JVD, pulses present bilaterally CHEST/LUNGS: CTA B, Symmetrical chest expansion, good air entry bilaterally GI/Abdomen: soft, NTND, good bowel sounds, no guarding or rebound /Bladder: no suprapubic tenderness, no CVA or paraspinal tenderness EXT/Skin: mucous membranes dry MSK: FROM x 4 Neuro: CN 2-12 grossly intact, no new focal deficits Psych: calm - Constitutional Vitals: Temp Pulse Resp BP Pulse Ox 98.7 F 73 20 134/57 95 11/02/17 09:28 11/02/17 09:28 11/02/17 09:28 11/02/17 09:28 11/02/17 09:28 Results - Labs CBC & Chem 7: 11/02/17 07:33 11/02/17 07:33 Labs: Laboratory Last Values WBC 15.7 K/mm3 (4.5-11.0) H 11/02/17 07:33 RBC 3.97 M/mm3 (3.65-5.03) 11/02/17 07:33 Hgb 11.3 gm/dl (10.1-14.3) 11/02/17 07:33 Hct 35.3 % (30.3-42.9) 11/02/17 07:33 MCV 89 fl (79-97) 11/02/17 07:33 MCH 29 pg (28-32) 11/02/17 07:33 MCHC 32 % (30-34) 11/02/17 07:33 RDW 14.9 % (13.2-15.2) 11/02/17 07:33 Plt Count 196 K/mm3 (140-440) 11/02/17 07:33 Lymph % (Auto) Chorus Dancer 10/29/17 21:37 [place] % (Auto) Chorus Dancer 10/29/17 21:37 Eos % (Auto) Chorus Dancer 10/29/17 21:37 Baso % (Auto) Chorus Dancer 10/29/17 21:37 Lymph # Chorus Dancer 10/31/17 03:12 [place] # Chorus Dancer 10/29/17 21:37 Eos # Chorus Dancer 10/29/17 21:37 Baso # Chorus Dancer 10/29/17 21:37 Add Manual Diff Complete 10/31/17 03:12 Total Counted 100 10/31/17 03:12 Seg Neutrophils % Chorus Dancer 10/29/17 21:37 Seg Neuts % (Manual) 55.0 % (40.0-70.0) 10/31/17 03:12 Band Neutrophils % 10.0 % 10/31/17 03:12 Lymphocytes % (Manual) 28.0 % (13.4-35.0) 10/31/17 03:12 Reactive Lymphs % (Man) 0 % 10/31/17 03:12 Monocytes % (Manual) 7.0 % (0.0-7.3) 10/31/17 03:12 Eosinophils % (Manual) 0 % (0.0-4.3) 10/31/17 03:12 Basophils % (Manual) 0 % (0.0-1.8) 10/31/17 03:12 Metamyelocytes % 0 % 10/31/17 03:12 Myelocytes % 0 % 10/31/17 03:12 Promyelocytes % 0 % 10/31/17 03:12 Blast Cells % 0 % 10/31/17 03:12 Nucleated RBC % Not Reportable 10/31/17 03:12 Seg Neutrophils # Chorus Dancer 10/29/17 21:37 Seg Neutrophils # Man 11.3 K/mm3 (1.8-7.7) H 10/31/17 03:12 Band Neutrophils # 2.1 K/mm3 10/31/17 03:12 Lymphocytes # (Manual) 5.8 K/mm3 (1.2-5.4) H 10/31/17 03:12 Abs React Lymphs (Man) 0.0 K/mm3 10/31/17 03:12 Monocytes # (Manual) 1.4 K/mm3 (0.0-0.8) H 10/31/17 03:12 Eosinophils # (Manual) 0.0 K/mm3 (0.0-0.4) 10/31/17 03:12 Basophils # (Manual) 0.0 K/mm3 (0.0-0.1) 10/31/17 03:12 Metamyelocytes # 0.0 K/mm3 10/31/17 03:12 Myelocytes # 0.0 K/mm3 10/31/17 03:12 Promyelocytes # 0.0 K/mm3 10/31/17 03:12 Blast Cells # 0.0 K/mm3 10/31/17 03:12 WBC Morphology Not Reportable 10/31/17 03:12 Hypersegmented Neuts Not Reportable 10/31/17 03:12 Hyposegmented Neuts Not Reportable 10/31/17 03:12 Hypogranular Neuts Not Reportable 10/31/17 03:12 Smudge Cells Few 10/31/17 03:12 Toxic Granulation Not Reportable 10/31/17 03:12 Toxic Vacuolation Not Reportable 10/31/17 03:12 Dohle Bodies Not Reportable 10/31/17 03:12 Pelger-Huet Anomaly Not Reportable 10/31/17 03:12 Boo Rods Not Reportable 10/31/17 03:12 Platelet Estimate Consistent w auto 10/31/17 03:12 Clumped Platelets Not Reportable 10/31/17 03:12 Plt Clumps, EDTA Not Reportable 10/31/17 03:12 Large Platelets Not Reportable 10/31/17 03:12 Giant Platelets Not Reportable 10/31/17 03:12 Platelet Satelliting Not Reportable 10/31/17 03:12 Plt Morphology Comment Not Reportable 10/31/17 03:12 RBC Morphology Not Reportable 10/31/17 03:12 Dimorphic RBCs Not Reportable 10/31/17 03:12 Polychromasia Not Reportable 10/31/17 03:12 Hypochromasia Not Reportable 10/31/17 03:12 Poikilocytosis Not Reportable 10/31/17 03:12 Anisocytosis Few 10/31/17 03:12 Microcytosis Not Reportable 10/31/17 03:12 Macrocytosis Not Reportable 10/31/17 03:12 Spherocytes Not Reportable 10/31/17 03:12 Pappenheimer Bodies Not Reportable 10/31/17 03:12 Sickle Cells Not Reportable 10/31/17 03:12 Target Cells Not Reportable 10/31/17 03:12 Tear Drop Cells Not Reportable 10/31/17 03:12 Ovalocytes Few 10/31/17 03:12 Helmet Cells Not Reportable 10/31/17 03:12 Dunlap-Kelley Bodies Not Reportable 10/31/17 03:12 [place] Rings Not Reportable 10/31/17 03:12 [place] Cells Not Reportable 10/31/17 03:12 Bite Cells Not Reportable 10/31/17 03:12 Crenated Cell Not Reportable 10/31/17 03:12 Elliptocytes Not Reportable 10/31/17 03:12 Acanthocytes (Spur) Not Reportable 10/31/17 03:12 Rouleaux Not Reportable 10/31/17 03:12 Hemoglobin C Crystals Not Reportable 10/31/17 03:12 Schistocytes Not Reportable 10/31/17 03:12 Malaria parasites Not Reportable 10/31/17 03:12 Josue Bodies Not Reportable 10/31/17 03:12 Hem Pathologist Commnt No 10/31/17 03:12 Sodium 147 mmol/L (137-145) H D 11/02/17 07:33 Potassium 4.0 mmol/L (3.6-5.0) 11/02/17 07:33 Chloride 111.1 mmol/L (98-107) H 11/02/17 07:33 Carbon Dioxide 22 mmol/L (22-30) 11/02/17 07:33 Anion Gap 18 mmol/L 11/02/17 07:33 BUN 14 mg/dL (7-17) 11/02/17 07:33 Creatinine 0.6 mg/dL (0.7-1.2) L 11/02/17 07:33 Estimated GFR > 60 ml/min 11/02/17 07:33 BUN/Creatinine Ratio 23 % 11/02/17 07:33 Glucose 121 mg/dL (65-100) H 11/02/17 07:33 POC Glucose 83 (70-105) 11/01/17 21:32 Lactic Acid 2.80 mmol/L (0.7-2.0) H* 10/29/17 21:37 Calcium 8.3 mg/dL (8.4-10.2) L 11/02/17 07:33 Magnesium 2.20 mg/dL (1.7-2.3) 11/01/17 04:25 Total Bilirubin 0.30 mg/dL (0.1-1.2) 10/30/17 01:53 AST 33 units/L (5-40) 10/30/17 01:53 ALT 30 units/L (7-56) 10/30/17 01:53 Alkaline Phosphatase 116 units/L (35-129) 10/30/17 01:53 C-Reactive Protein 2.10 mg/dL (0.00-1.30) H 10/30/17 13:35 Total Protein 7.6 g/dL (6.3-8.2) 10/30/17 01:53 Albumin 4.0 g/dL (3.9-5) 10/30/17 01:53 Albumin/Globulin Ratio 1.1 % 10/30/17 01:53 Urine Color Elle (Yellow) 10/29/17 23:46 Urine Turbidity Cloudy (Clear) 10/29/17 23:46 Urine pH 5.0 (5.0-7.0) 10/29/17 23:46 Ur Specific Hayden 1.021 (1.003-1.030) 10/29/17 23:46 Urine Protein 30 mg/dl mg/dL (Negative) 10/29/17 23:46 Urine Glucose (UA) Neg mg/dL (Negative) 10/29/17 23:46 Urine Ketones Neg mg/dL (Negative) 10/29/17 23:46 Urine Blood Neg (Negative) 10/29/17 23:46 Urine Nitrite Neg (Negative) 10/29/17 23:46 Urine Bilirubin Neg (Negative) 10/29/17 23:46 Urine Urobilinogen 2.0 mg/dL (<2.0) 10/29/17 23:46 Ur Leukocyte Esterase Lg (Negative) 10/29/17 23:46 Urine WBC (Auto) > 182.0 /HPF (0.0-6.0) H 10/29/17 23:46 Urine RBC (Auto) 9.0 /HPF (0.0-6.0) 10/29/17 23:46 Urine Bacteria (Auto) 4+ /HPF (Negative) 10/29/17 23:46 Urine WBC Clumps 3+ /HPF 10/29/17 23:46 Hyaline Casts 8 /LPF 10/29/17 23:46 Urine Mucus 3+ /HPF 10/29/17 23:46 Urine Osmolality 799 Mosm/kg 10/30/17 16:28 Urine Creatinine 119.4 mg/dL (0.1-20.0) H 10/30/17 16:28 Urine Sodium 99 mmol/L 10/30/17 16:28 Urine Chloride 80.3 mmolL (110-250) L 10/30/17 16:28 Miscellaneous Test Flexitest 1 10/31/17 Unknown
--- NOTE | 2017-11-02 11:17 | Discharge Summary ---
Providers - Providers Date of Admission: 10/30/17 02:09 Date of discharge: 11/02/17 Attending physician: DEB VILLARREAL 10/30/17 03:22 Consult to Physician [CONS] Routine Consulting Provider: MU FONTANA Reason For Exam: wbc 46 Place consult to:: Notified:: Phone number called:: [phone] Was contact made?: Yes If yes, spoke with:: Time called:: 08:15 Comment:: VALENTINO 10/30/17 08:25 Consult to Physician [CONS] Routine Consulting Provider: RONNIE TONEY Reason For Exam: Sodium level 180 Place consult to:: Notified:: Phone number called:: [phone] Was contact made?: Yes If yes, spoke with:: LEEANN Time called:: 10:35 Comment:: VALENTINO 10/30/17 08:26 Consult to Physician [CONS] Routine Consulting Provider: ROBSON DOMINGUEZ Reason For Exam: lung nodule and ICU evaluation Place consult to:: Notified:: Phone number called:: [phone] Was contact made?: Yes If yes, spoke with:: ABDIRAHMAN Time called:: 10:27 Comment:: VALENTINO Primary care physician: ISAEL KHAN Hospitalization Condition: Stable Hospital course: Patient is 67-year-old woman from a [facility] with a history of mental disorder, Advance dementia who presents with altered mental status and abnormal labs (no prior hospitalization in EMR). She was found to have a sodium of 177, white blood cell count 46.7 CT chest without contrast reported as no pneumonia, spiculated noncalcified nodule in the posterior segment of the right upper lung abutting the major fissure with a 14 mm diameter Diagnosis Diagnoses: -E. coli UTI leading to ams/encephalopathy, lost of appetite and severe electrolyte imbalances -Acute metabolic encephalopathy: Treat underlying cause -Severe hypernatremia: Consulted nephrology and d/w Dr. Toney should be on D5W -Severe leukocytosis, severely dehydrated and FTT, ?Cancer: consult heme/onc -ARF, vasomotor nephropathy, resolved with ivf -Mild malnutrition: poor intake, ?peg -Lung nodule ?lung Cancer: consulted pulmonology -DVT/GI prophylaxis reviewed 10/30/2017: per warehouse helper, Dr. Dominguez on 67 y/o female, with right upper lobe nodule, leuckocytosis, hypernatremia and renal failure, unknown if acute or acute on chronic. Given patient's mental state, unable to ask questions regarding history. Most likely this is not new but without proper history tough to say if this is malignant or not. Appears patient has baseline dementia, not sure if family is involved that could give more history. Recommend the followin. Attempt to find family if any, then can ask them further history (i.e, do they know about this nodule, has it been worked up, etc) 2. if no family, given mental state, she would not be a candidate for therapy, especially if this is greater than stage 1 disease if malignancy. Also without family, no consent could be obtained for biopsy. Could consider outpatient PET to see if it lights up. 3. Agree with abdominal CT 4. Bottom, line, not much else can be done for the work up of the nodule at this time, without family or further history." Will continue to follow She is from [facility] and she is [place] She is DNR, [place] will they will fax over a form Unable to do renal us due to mental state ?mental baseline, ?mental retardation 10/31/17: She is eating more and less confused. I called Stephanie Lemus, assigned case management (x2 years)/ha[place]/state guardian @ [phone] from [employer]. She will need two physicians to justify if PEG tube is needed or any procedure. Ms. Lemus is not aware of any prior diagnosis of Lung nodule. Also, [facility] may not take her back with PEG tube. Ms. Lemus will meet me tomorrow. 11/01/2017: d/w Ms. Lemus what to do about Lung nodule? d/w Dr. Dominguez==> outpatient PET scan first, if negative then nothing to be done, it positive needs biopsy, sedated. It appears she doesn't need PEG now, patient is eating and drinking well, just needs 1:1. Renal is following the hypernatremia and adjusting IVFs. Ordered am labs. Once sodium levels improves than d/c back to [facility]. Urine culture pending. 11/02/2017: E. coli uti, back to [place] once cleared by renal Disposition: DC-01 TO HOME OR SELFCARE Time spent for discharge: 36 minutes Core Measure Documentation - Palliative Care Palliative Care/ Comfort Measures: Not Applicable - Core Measures Any of the following diagnoses?: none - VTE Discharge Requirements Deep Vein Thrombosis/Pulmonary Embolism Present on Admission: No Has pt received <5 days of overlap therapy or INR<2.0: No Anticoagulant overlap therapy prescribed at discharge: No Contraindication No Overlap Therapy order at DC: Not Indicated Exam - Physical Exam Narrative exam: GEN: Thin and frail NAD, AWAKE, ALERT, ORIENTATED 1 HEENT: NCAT, EOMI, PERRL, OP dry and pasty lips NECK: supple, no adenopathy, no thyromegaly, no JVD CVS/HEART: RRR, NORMAL S1S2, NO JVD, pulses present bilaterally CHEST/LUNGS: CTA B, Symmetrical chest expansion, good air entry bilaterally GI/Abdomen: soft, NTND, good bowel sounds, no guarding or rebound /Bladder: no suprapubic tenderness, no CVA or paraspinal tenderness EXT/Skin: mucous membranes dry MSK: FROM x 4 Neuro: CN 2-12 grossly intact, no new focal deficits Psych: calm - Constitutional Vitals: Temp Pulse Resp BP Pulse Ox 98.7 F 73 20 134/57 95 11/02/17 09:28 11/02/17 09:28 11/02/17 09:28 11/02/17 09:28 11/02/17 09:28 Plan Activity: up only with assistance, fall precautions Wound: per wound nurse instructions Additional Instructions: 1:1 assist with meals and drink 8 cups of water a day. Schedule outpatient PET scan thru Dr. Murphy to evaluate the Lung nodule. Recheck BMP on saturday or saturday. Restart the Aricept after finishing the Levaquin Follow up with: ISAEL KHAN MD [Primary Care Provider] - 7 Days RONNIE TONEY MD [Staff Physician] - 7 Days EDUARDO MURPHY MD [Staff Physician] - 7 Days Prescriptions: Levofloxacin [Levaquin TAB] 750 mg PO Q24HR #6 day
--- NOTE | 2017-11-02 12:12 | Progress Note ---
Assessment and Plan Assessment: 1) Sepsis: leukocytosis better 46K-->18K. Etiology likely from UTI +/- ? occult source ? malignancy. CRP=2.1 2) UTI - urine cx + E coli pansensitive 3) RUL lung nodule ? malignancy. CT abd showed renal cyst. 4) Hypernatremia - better 5) AMS - from high sodium / infection ? - better Plan: Diet and will -continue po levaquin total 7 days from 10/31 -monitor leukocytosis -lung nodule w/u limited in view of lack of family for consent. Agree with PET scan as an outpatient I am signing off Thank you Dr Epps for your consultation, will follow up with you. Nelly Sauer MD Infectious Diseases Specialist [facility] M [phone] O [phone] Subjective Date of service: 11/02/17 Principal diagnosis: leukomoid reaction Interval history: Feels ok no complaints, no fever. Microbiology: blood culture 10/30 ngtd urine cultre E coli Current Antimicrobials: levaquin 11/01 Previous Antimicrobials: Ceftriaxone Zosyn Objective - Exam Narrative Exam: General appearance: Alert in NAD, conversant Eyes: anicteric sclerae, moist conjunctivae; no lid-lag; PERRLA HENT: Atraumatic; oropharynx clear with moist mucous membranes and no mucosal ulcerations/no oral thrush; normal hard and soft palate. Normal external ears. Neck: Trachea midline; supple, no thyromegaly or lymphadenopathy Lungs: CTA CV: RRR Abdomen: Soft, non-tender Extremities: No peripheral edema or extremity lymphadenopathy Skin: Normal temperature, turgor and texture; no rash, ulcers or subcutaneous nodules Psych: not appropriate repeating same answers. Neuro: alert and oriented x 3. Moving all extermities Lines: No CVL / PICC - Constitutional Vitals: Vital Signs Temp Pulse Resp BP Pulse Ox 98.7 F 73 20 134/57 95 11/02/17 09:28 11/02/17 09:28 11/02/17 09:28 11/02/17 09:28 11/02/17 09:28 Temperature -Last 24 Hours Temperature 98.7 F Temperature 98.0 F - Labs CBC & Chem 7: 11/02/17 07:33 11/02/17 07:33 Labs: Abnormal lab results 11/02/17 11/02/17 Range/Units 07:33 07:33 WBC 15.7 H (4.5-11.0) K/mm3 Sodium 147 H D (137-145) mmol/L Chloride 111.1 H (98-107) mmol/L Creatinine 0.6 L (0.7-1.2) mg/dL Glucose 121 H (65-100) mg/dL Calcium 8.3 L (8.4-10.2) mg/dL
--- NOTE | 2017-11-02 12:44 | Progress Note ---
Subjective Principal diagnosis: leukomoid reaction Interval history: Patient was seen today for follow-up on multiple renal related issues resting comfortably in no acute distress Vitals labs intake output medications were reviewed Social history: Reviewed Allergies: Reviewed Family history: Reviewed Physical examination HEENT: Oral mucosa moist no pallor or icterus Neck: Supple no JVD Chest: Clear to auscultation anteriorly CVS: Regular rate and rhythm S1 and S2 heard Abdomen: Soft nontender no suprapubic masses no organomegaly appreciable Extremity: Dry skin Assessment and plan Acute kidney injury: Currently appears to be in remission, creatinine is normal Hypernatremia: wwe'll continue to follow slowly improving Monitor daily labs intake and output Avoid any follow-up nephrotoxic medication We'll continue to follow and make recommendation from renal standpoint Objective - Vital Signs Vital signs: Vital Signs - 12hr 11/02/17 09:28 Temperature 98.7 F Pulse Rate 73 Respiratory 20 Rate Blood Pressure 134/57 O2 Sat by Pulse 95 Oximetry - Lab 11/02/17 07:33 11/02/17 07:33 Most recent lab results Calcium 8.3 mg/dL (8.4-10.2) L 11/02/17 07:33 Magnesium 2.20 mg/dL (1.7-2.3) 11/01/17 04:25 Urine Creatinine 119.4 mg/dL (0.1-20.0) H 10/30/17 16:28 Urine Sodium 99 mmol/L 10/30/17 16:28
[2017-11-02 21:52] VITALS: BP 123/58
== END 2017-11-02 21:52 | DRG 871 ==
LOC: ED 21:22 → 2B-ACE 10-30 02:09
PROVIDERS: ADMIT Internal Medicine; ATTEND Internal Medicine
DX: A41.9 Sepsis, unspecified organism (principal); N17.0 Acute kidney failure with tubular necrosis; G93.41 Metabolic encephalopathy; E87.0 Hyperosmolality and hypernatremia; E44.1 Mild protein-calorie malnutrition; N39.0 Urinary tract infection, site not specified; F31.30 Bipolar disorder, current episode depressed, mild or moderate severity, unspecified; E86.0 Dehydration; F03.90 Unspecified dementia, unspecified severity, without behavioral disturbance, psychotic disturbance, mood disturbance, and anxiety; R91.1 Solitary pulmonary nodule; Z66 Do not resuscitate; R62.7 Adult failure to thrive; B96.20 Unspecified Escherichia coli [E. coli] as the cause of diseases classified elsewhere; Z79.899 Other long term (current) drug therapy; Z68.20 Body mass index [BMI] 20.0-20.9, adult
CPT/HCPCS: 36415; 71250; 74176; 76770; 80048; 80053; 81001; 82140; 82436; 82570; 82962; 83735; 83935; 84300; 85007; 85025; 85027; 86140; 87040; 87076; 87086; 87186; 96361; 96365; 96366; 96375; J0696; J1200; J1650; J2543; J3370; J7030; J7070